=== PATIENT | male | born 1970 | race Caucasian/White ===

== ENCOUNTER 2025-03-29 11:23 | Outpatient (CLI) | payer BC, SELFPAY ==
--- OUTSIDE RECORDS SUMMARY | 2025-02-07 10:20 | XMS_ITS | Encounter Summary ---
Author Organization Healthcare Address [address] [place] [address] Care Team Providers Care Macroeconomics Professor Name Role Phone Saud Agustin DO Primary Care Provider Encounter Details Date Type Department Care Team (Late st Contact Info) Description 02/07/2025 10:20 AM EDT Consult [facility] Cardiothoracic [address], [address] [place] [address] Adi Barrientos MD [address] [place] [address] Essential hypertension (Primary Dx); Aneurysm of ascending aorta without rupture (CMS/HCC) Social History Tobacco Use Types Packs/Day Years Used Date Smoking Tobacco: Every Day Alcohol Use Standard Drinks/Week Comments Yes 0 (1 standard drink = 0.6 oz pur e alcohol) Sex and Gender Information Value Date Recorded Sex Assigned at Not on file Legal Sex Male 6:11 PM EDT Gender Identity Not on file Sexual Orientation Not on file documented as of this encounter Last Filed Vital Signs Vital Sign Reading Time Taken Comments Blood Pressure 110/74 02/07/2025 11:52 AM EDT Pulse 97 02/07/2025 11:52 AM EDT Temperature - - Respiratory Rate - - Oxygen Saturation 98% 02/07/2025 11:52 AM EDT Inhaled Oxygen Concentration - - Weight 99.6 kg (219 lb 9.3 oz) 02/07/2025 11:52 AM EDT Height 185.4 cm (6' 1 ) 02/07/2025 11:52 AM EDT Body Mass Index 28.97 02/07/2025 11:52 AM EDT documented in this encounter Miscellaneous Notes * Progress Notes - Dhara Dwyer, WATCH TRAIN INSPECTOR - 02/07/2025 10:20 AM EDT Reason for visit / Chief Complaint: New findings of Ascending Aortic Aneurism History of present illness: Roberto Tolentino is a very pleasant 54 y.o. 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 He was recentlybeing treated following a severe upper respiratory infection and had a CT scan of his chest done aspart of his workup. Several findings on the scan were concerning, among them a 4.6 cm ascending aortic aneurism. 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 His BP is well- maintained on his current regimen, he has lost a significant amount of weight over the past several years, and he reports a high degree of stress due to this finding and NYHA Classification: Class I: No symptoms with ordinary activity. Smoking Cessation: N/A Active Problems: Patient Active Problem List Diagnosis Date Noted Ascending aortic aneurysm (CMS/HCC) 02/07/2025 Essential hypertension 12/30/2020 Hypercholesteremia 12/30/2020 Dyslipidemia 01/18/2015 Medical History: Past Medical History: Diagnosis Date Aneurysm (CMS/HCC) Diabetes mellitus (CMS/HCC) Fatty liver Hypertension Palpitations Palpitations Personal history of diseases of the skin and subcutaneous tissue History of ingrown nail Personal history of other diseases of the musculoskeletal system and connective tissue History of low back pain Personal history of other diseases of the respiratory system History of acute bronchitis Personal history of other diseases of the respiratory system History of acute sinusitis Sleep apnea Surgical History: Surgical History[1] Social History: Tobacco: Tobacco Use: High Risk (02/07/2025) Patient History Smoking Tobacco Use: Every Day Smokeless Tobacco Use: Unknown Passive Exposure: Not on file Alcohol: Alcohol Use: Not on file Illicit drug use: Social History Substance and Sexual Activity Drug Use Not on file Family History: family history includes Cancer in his father; Colon cancer in an other family member; Conversions -Other in an other family member; Diabetes in an other family member; Diabetes type II in his fatherand mother; Heart disease in his brother and father; Hypertension in his father and mother; Menorrhagia in an other family member; Sleep apnea in an other family member; Stroke in his paternal grandfather; Thyroid disease in an other family member. Allergies: Allergies[2] Medications: Prior to Admission medications Medication Sig Start Date End Date Taking? Authorizing Provider aspirin 81 MG EC tablet Take 1 tablet by mouth 1 (one) time each day. 12/30/15 Yes Nette Burt MD Dulaglutide (TRULICITY SC) Inject 3.5 mg under the skin 1 (one) time per week. 07/17/24 Yes Nette Burt MD Farxiga 10 MG tablet Take 1 tablet by mouth 1 (one) time each day. 01/21/25 Yes Nette Burt MD Lanrosalinda SoloStar 100 UNIT/ML injection pen Inject 70 Units under the skin every morning. 11/16/24 YesProviderNette MD lisinopril 5 MG tablet Take 1 tablet by mouth daily. 02/27/24 Yes Nette Burt MD metFORMIN (Glucophage) 1000 MG tablet Take 1 tablet by mouth every 12 (twelve) hours. 06/20/24 Yes Nette Burt MD rosuvastatin (Crestor) 20 MG tablet Take 1 tablet by mouth nightly. 12/10/24 Yes Nette Burt MD Physical exam: Visit Vitals BP 110/74 Pulse 97 Ht 1.854 m (6' 1 ) Wt 99.6 kg (219 lb 9.3 oz) SpO2 98% BMI 28.97 kg/m?? Physical Exam Constitutional: Appearance: Normal appearance. HENT: Head: Normocephalic and atraumatic. Right Ear: External ear normal. Left Ear: External ear normal. Nose: Nose normal. Mouth/Throat: Pharynx: Oropharynx is clear. Eyes: Pupils: Pupils are equal, round, and reactive to light. Cardiovascular: Rate and Rhythm: Normal rate and regular rhythm. Pulses: Normal pulses. Heart sounds: Normal heart sounds. Pulmonary: Effort: Pulmonary effort is normal. Breath sounds: Normal breath sounds. Abdominal: Palpations: Abdomen is soft. Genitourinary: Comments: Deferred Musculoskeletal: General: Normal range of motion. Cervical back: Normal range of motion and neck supple. Skin: General: Skin is warm and dry. Capillary Refill: Capillary refill takes less than 2 seconds. Neurological: General: No focal deficit present. Mental Status: He is alert and oriented to person, place, and time. Mental status is at baseline. Psychiatric: Mood and Affect: Mood normal. Behavior: Behavior normal. Thought Content: Thought content normal. Judgment: Judgment normal. Imaging: CT imaging from 12/28/2024 performed at [facility], report read coronary artery calcification, aneursimal dilation of the ascending aorta measuring 4.6 cm transversely. The heart and pericardium are unremarkable. Impression: Roberto Tolentino is a very pleasant 54 y.o. male with PMHX HLD, HTN, T2D with insulin use, and NABIL, who self-referred to us in in regards to incidental findings of an aneurism on imaging. He presents today for second opinion from Dr Barrientos regarding significance of and need for monitoring of ascending aortic aneurism. Plan: - Dr. Barrientos looked at outside imaging and did not feel CT was of a high enough resolution to properly evaluate the aorta, given that it was performed more for a pulmonary workup its understandable. - We would like to obtain CTA chest for more thorough evaluation and measurement of ascending aortaand then we will see him back in the clinic in about 3 weeks to review results - Discussed this plan with the patient and his and they were in agreement - Discussed HTN management and patient's current regimen appears to be controlling his blood pressure to goal Personally reviewed CT imaging. Imaging he was were resolution basically lung scan. Quality of he was not adequate confirm a size ascending aortic aneurysm accurate. He was had serial echoes and no one has told aneurysm, those studies appeared to be and a private practice office which does not haveaccess descend images electronically. We will have him back in office as above go through a dedicated CTA chest. [1] Past Surgical History: Procedure Laterality Date CATARACT EXTRACTION COLONOSCOPY [2] Allergies Allergen Reactions Penicillins Other - please document in the comment field, Rash and Unknown - Patient states they donot know rxn details Prednisone Other - please document in the comment field Elevates blood sugar Cosigned by Adi Barrientos MD at 02/11/2025 4:02 PM EDT Associated attestation - Adi Barrientos MD - 02/11/2025 4:02 PM EDT The patient was seen by myself and Advanced Practice Provider (JAYSON), and care was reviewed with me. documented in this encounter Plan of Treatment Upcoming Encounters Date Type Department Care Team (Late st Contact Info) Description 09/12/2025 12:30 PM EST Appointment [facility] [address] [place] [address] 09/12/2025 1:40 PM EST Office Visit [facility] [address], [address] [place] [address] Adi Barrientos MD [address] [place] [address] documented as of this encounter Visit Diagnoses Diagnosis Essential hypertension- Primary Unspecified essential hypertension Aneurysm of ascending aorta without rupture (CMS/HCC) documented in this encounter Additional Health Concerns Assessment Noted Time A fall risk assessment has been complete d for the patient 02/07/2025 12:07 PM EDT A Body Mass Index follow-up plan has been documented for the patient 02/07/2025 3:04 PM EDT documented as of this encounter Care Teams Macroeconomics Professor Relationship Specialty Start Date End Date Saud Agustin DO [address] [facility] [address] [place] [address] PCP - General 02/04/25 documented as of this encounter
--- OUTSIDE RECORDS SUMMARY | 2025-02-28 14:12 | XMS_ITS | Encounter Summary ---
Author Organization [facility] Address [address] [place] [address] Care Team Providers Care Nutrition Professor Name Role Phone Saud Agustin DO Primary Care Provider Reason for Referral * Imaging (Routine) - Closed Specialty Diagnoses / Procedures Referred By Verenice quezada Referred To Contact Radiology Diagnoses Aneurysm of ascending aorta without rupture (CMS/HCC) Procedures CT Angio Chest Adi Barrientos MD [address] [address] Phone: tel: fax: Referral ID Status Reason Start Date Expiration Date Visits Re quested Visits Authorized [id number] Closed 02/07/2025 08/09/2026 1 1 Reason for Visit * Imaging (Routine) - Closed Specialty Diagnoses / Procedures Referred By Verenice quezada Referred To Contact Radiology Diagnoses Aneurysm of ascending aorta without rupture (CMS/HCC) Procedures CT Angio Chest Adi Barrientos MD [address] [address] Phone: tel: fax: Referral ID Status Reason Start Date Expiration Date Visits Re quested Visits Authorized [id number] Closed 02/07/2025 08/09/2026 1 1 Encounter Details Date Type Department Care Team (Latest Contact Info) Description 02/28/2025 2:12 PM EDT - 02/28/2025 11:59 PM EDT Hospital Encounter [facility] [address] [place] [address] Aneurysm of ascending aorta without rupture ([facility]) Discharge Disposition: Home or Self Care Social History Tobacco Use Types Packs/Day Years Used Date Smoking Tobacco: Every Day Alcohol Use Standard Drinks/Week Comments Yes 0 (1 standard drink = 0.6 oz pur e alcohol) Sex and Gender Information Value Date Recorded Sex Assigned at Not on file Legal Sex Male 6:11 PM EDT Gender Identity Not on file Sexual Orientation Not on file documented as of this encounter Medications at Time of Discharge aspirin 81 MG EC tablet Take 1 tablet by mouth 1 (one) time each day. 12/30/2015 Dulaglutide (TRULICITY SC) Inject 3.5 mg under the skin 1 (one) time per week. 07/17/2024 Farxiga 10 MG tablet Take 1 tablet by mouth 1 (one) time each day. 01/21/2025 Lantus SoloStar 100 UNIT/ML injection pen Inject 70 Units under the skin every morning. 11/16/2024 lisinopril 5 MG tablet Take 1 tablet by mouth daily. 02/27/2024 metFORMIN (Glucophage) 1000 MG tablet Take 1 tablet by mouth every 12 (twelve) hours. 06/20/2024 rosuvastatin (Crestor) 20 MG tablet Take 1 tablet by mouth nightly. 12/10/2024 documented as of this encounter Miscellaneous Notes * Aubrey Christian - 02/28/2025 2:19 PM EDT Images from the original note were not included. 1639 Caring for Yourself after Contrast Imaging If you had ORAL contrast: ?? You can go back to your normal diet and activities as tolerated. ?? Drink plenty of fluids, unless told otherwise. If you had IV contrast: ?? You can go back to your normal diet and activities as tolerated. ?? Drink plenty of fluids, unless told otherwise. ?? Leave a bandage on the site for 30 minutes (where the IV was inserted or blood was drawn). If you had Intravesical (bladder) contrast: ?? Return to normal diet and activity. What you need to know about delayed reaction to IV contrast What is IV Contrast? ?? Contrast is a dye that is put into your body through an IV. ?? It is used for imaging scans such as CT scans and MRIs. ?? The contrast makes blood vessels, organs and other parts of your body show up better on the scan. What do I need to do after IV contrast? ?? Drink lots of fluids. This will help flush the contrast out of your system. ?? Drink 2-3 extra glasses or bottles of water within 4 hours of your scan. What is a contrast reaction? ?? A contrast reaction is a bad side effect from the contrast dye. ?? It is rare but it does happen. ?? They can be mild - such as sneezing, itching, or hives. ?? They can be severe - such as trouble breathing, throat swelling, and irregular heart beat. When do these reactions happen? ?? They often happen right after the contrast is injected. ?? Some happen hours after going home. Go to the nearest Emergency Department right away if you have any of these symptoms after you leavethe clinic or hospital. ?? Sneezing ?? Itching in your mouth, throat, eyes, ears, or skin ?? Rash or hives ?? Throwing up or stomach sickness ?? High heart rate or ?racing? of your heart ?? Feeling dizzy or woozy ?? Feeling short of breath or like you can?t take a deep breath ?? Feeling very anxious for no other reason It is very important that these reactions be treated. Tell the doctor or nurse that you are having a reaction to IV contrast dye. Do not ignore any sign of a reaction! All reactions must be assessed by a doctor. Call 911 if you are alone and your reaction is more than mild sneezing or itching. If you have a mild reaction, call to speak with a Radiologist, explain that you havehad a contrast reaction, as this needs to be added to your medical record. documented in this encounter Plan of Treatment Upcoming Encounters Date Type Department Care Team (Late st Contact Info) Description 09/12/2025 12:30 PM EST Appointment [facility] [address] [place] [address] 09/12/2025 1:40 PM EST Office Visit [facility] Cardiothoracic [address], [address] [place] [address] Adi Barrientos MD [address] [place] [id number] documented as of this encounter Procedures Procedure Name Priority Date/Time Associated Diagnosis Comments CT ANGIO CHEST Routine 02/28/2025 2:43 PM EDT Aneurysm of ascending aorta without rupture (CMS/HCC) documented in this encounter Results * CT Angio Chest (02/28/2025 2:43 PM EDT) Anatomical Region Laterality Modality Chest Computed Tomogra phy Impressions 03/01/2025 8:29 AM EDT 45 mm ascending aortic aneurysm. CRITICAL RESULT: No COMMUNICATION: Per this written report. By electronically signing this report, I, the attending physician, attest that I have personally reviewed the images/data for the above examination(s) and agree with the final edited report. Drafted by RT Olga on 02/28/2025 2:47 PM Final report signed by Adi Monzon MD on 03/01/2025 8:29 AM Narrative 03/01/2025 8:29 AM EDT CLINICAL INDICATION: Aortic aneurysm suspected TECHNIQUE: A CT angiogram of the chest was performed in arterial phase. A total of 80 mL of Omnipaque 350 was administered during the examination. Advanced 3D workstation manipulation and review of the data set was performed by the interpreting physician to further define anatomy and possible pathology. Images of areas of interest were created utilizing various techniques. These images were saved and transferred to PACS if significant. TOTAL DLP (Dose-Length Product): 1604.63 mGy.cm Please note: The reported value represents the total of one or more individual components during the CT acquisition on this date and at this time, and as such, the same value may appear in more than one CT report depending on the interpreting/reporting physicians. COMPARISON: CT chest high resolution protocol on February 05, 2025 from outside images VASCULAR FINDINGS: Stable aneurysmal enlargement of the ascending thoracic aorta 45 mm. The aortic arch and descending aorta are normal in caliber. Preservation of the sinotubular junction. Arch vessels are widely patent. Upper abdomen, incidentally imaged SMA, celiac axis, bilateral renal arteries are widely patent. Mild coronary artery calcifications. Sinus: L 45 mm, R 36 mm, N 40 mm Sinotubular Junction: 42 mm Mid Ascending Aorta: 45 mm Proximal Transverse Aorta (just proximal to the great vessels): 40 mm Mid Transverse Aortic Arch (Between the Origins of the Left Carotid and Left Subclavian artery): 32 mm Dista Transverse Aorta (at the isthmus): 27 mm Proximal Descending Thoracic Aorta: 25 mm Distal Descending Thoracic Aorta: 24 mm ANCILLARY FINDINGS: Mild subpleural pulmonary fibrosis. No airspace opacities or suspicious nodules. No mediastinal or hilar adenopathy. No pleural or pericardial effusions. No concerning findings in the upper abdomen. Incidental note is made of colonic diverticular disease. Main pulmonary artery: 34 mm Procedure Note Adi Monzon MD - 03/01/2025 CLINICAL INDICATION: Aortic aneurysm suspected TECHNIQUE: A CT angiogram of the chest was performed in arterial phase. A total of80 mL of Omnipaque 350 was administered during the examination. [id number] workstation manipulation and review of the data set was performed bythe interpreting physician to further define anatomy and possiblepathology. Images of areas of interest were created utilizing varioustechniques. These images were saved and transferred to PACS ifsignificant. TOTAL DLP (Dose-Length Product): 1604.63 mGy.cm Please note: Thereported value represents the total of one or more individual componentsduring the CT acquisition on this date and at this time, and as such, thesame value may appear in more than one CT report depending on theinterpreting/reporting physicians. COMPARISON: CT chest high resolution protocol on February 05, 2025 from outside images VASCULAR FINDINGS: Stable aneurysmal enlargement of the ascending thoracic aorta 45 mm. Theaortic arch and descending aorta are normal in caliber. Preservation ofthe sinotubular junction. Arch vessels are widely patent. Upper abdomen,incidentally imaged SMA, celiac axis, bilateral renal arteries are widelypatent. Mild coronary artery calcifications. Sinus: L 45 mm, R 36 mm, N 40 mm Sinotubular Junction: 42 mm Mid Ascending Aorta: 45 mm Proximal Transverse Aorta (just proximal to the great vessels): 40 mm Mid Transverse Aortic Arch (Between the Origins of the Left Carotid andLeft Subclavian artery): 32 mm Dista Transverse Aorta (at the isthmus): 27 mm Proximal Descending Thoracic Aorta: 25 mm Distal Descending Thoracic Aorta: 24 mm ANCILLARY FINDINGS: Mild subpleural pulmonary fibrosis. No airspace opacities or suspiciousnodules. No mediastinal or hilar adenopathy. No pleural or pericardialeffusions. No concerning findings in the upper abdomen. Incidental note ismade of colonic diverticular disease. Main pulmonary artery: 34 mm IMPRESSION: 45 mm ascending aortic aneurysm. CRITICAL RESULT: No COMMUNICATION: Per this written report. By electronically signing this report, I, the attending physician, attestthat I have personally reviewed the images/data for the aboveexamination(s) and agree with the final edited report. Drafted by RT Olga on 02/28/2025 2:47 PM Final report signed by Adi Monzon MD on 03/01/2025 8:29 AM us Adi Barrientos MD IMG CT PROCEDURES Final Resu lt documented in this encounter Visit Diagnoses Diagnosis Aneurysm of ascending aorta without rupture (CMS/HCC) documented in this encounter Administered Medications Inactive Administered Medications - up to 3 most recent administrations Medication Order MAR Action Action Date Dose Rate Site iohexol (OMNIPaque) 350 MG/ML injection 80 mL 80 mL, Intravenous, Once in imaging, 1 dose, Starting on Char 02/28/25 at 1419, Until Char 02/28/25 at 1441, Routine, Imaging Protocol Orders Given 02/28/2025 2:41 PM EDT 80 mL documented in this encounter Additional Health Concerns Assessment Noted Time A fall risk assessment has been complete d for the patient 02/28/2025 3:10 PM EDT A Body Mass Index follow-up plan has been documented for the patient 03/09/2025 9:48 AM EDT documented as of this encounter Care Teams Nutrition Professor Relationship Specialty Start Date End Date Saud Agustin DO [facility] [address] [place] [address] PCP - General 02/04/25 documented as of this encounter
--- OUTSIDE RECORDS SUMMARY | 2025-02-28 15:20 | XMS_ITS | Encounter Summary ---
Author Organization [facility] Address [address] [place] [address] Care Team Providers Care Jet Handler Name Role Phone Saud Agustin DO Primary Care Provider Reason for Referral * Imaging (Routine) - Pending Review Specialty Diagnoses / Procedures Referred By Charlotteac t Referred To Contact Radiology Diagnoses Aneurysm of ascending aorta without rupture (CMS/HCC) Procedures CT Chest wo IV Contrast dAi Barrientos MD [address] [address] Phone: tel: fax: Referral ID Status Reason Start Date Expiration Date V isits Requested Visits Authorized [id number] Pending Review 03/01/2025 08/31/2026 1 1 Encounter Details Date Type Department Care Team (Late st Contact Info) Description 02/28/2025 3:20 PM EDT Office Visit [place] [facility] [address], [address] [place] [address] Adi Barrientos MD [address] [address] Aneurysm of ascending aorta without rupture (CMS/HCC) (Primary Dx) Social History Tobacco Use Types Packs/Day Years [...] Sign Reading Time Taken Comments Blood Pressure 135/89 02/28/2025 3:09 PM EDT Pulse 78 02/28/2025 3:09 PM EDT Temperature - - Respiratory Rate - - Oxygen Saturation 97% 02/28/2025 3:09 PM EDT Inhaled Oxygen Concentration - - Weight 98.9 kg (218 lb 0.6 oz) 02/28/2025 3:09 P M EDT Height - - Body Mass Index 28.77 02/07/2025 11:52 AM EDT documented in this encounter Miscellaneous Notes * Progress Notes - Antonio Rueda MD - 02/28/2025 3:20 PM EDT Referring Provider: Reason for visit / Chief Complaint: ascending aortic aneurysm History of present illness: Roberto Tolentino is a 54 y.o. male here for follow up from ascending aortic aneurysm. He has a past medical history of sleep apnea, hypertension, hyperlipemia, and diabetes. He was recently being treatedfollowing a severe upper respiratory infection and had a CT scan of his chest done as part of his workup. He had an incidentally found 4.6 cm ascending aortic aneurism. However, the scan was not a great resolution for evaluating the aorta. He returns after CTA of the chest. He has no family history of aneurysms, sudden , or connective tissue diseases. He denies chestpain or back pain. Has occasional palpitations. Follows with Dr. Ruiz. Reportedly gets ECHOs in the office but we have no reports. Problem List[1] Medical History Past Medical History: Diagnosis Date Aneurysm (CMS/HCC) [...] History of acute sinusitis Sleep apnea Surgical History Surgical History[2] Social History: Tobacco: Tobacco Use: High Risk [...] disease in an other family member. Allergies: Allergies[3] Medications: Prior to Admission medications Medication Sig Start Date End Date Taking? Authorizing Provider aspirin 81 MG EC tablet Take 1 tablet by mouth 1 (one) time each day. 12/30/15 Nette Burt MD Dulaglutide (TRULICITY SC) Inject 3.5 mg under the skin 1 (one) time per week. 07/17/24 Nette Burt MD Farxiga 10 MG tablet Take 1 tablet by mouth 1 (one) time each day. 01/21/25 Nette Burt MD Lanpilarus SoloStar 100 UNIT/ML injection pen Inject 70 Units under the skin every morning. 11/16/24 Nette Burt MD lisinopril 5 MG tablet Take 1 tablet by mouth daily. 02/27/24 Nette Burt MD metFORMIN (Glucophage) 1000 MG tablet Take 1 tablet by mouth every 12 (twelve) hours. 06/20/24 Nette Burt MD rosuvastatin (Crestor) 20 MG tablet Take 1 tablet by mouth nightly. 12/10/24 Nette Burt MD Visit Vitals BP 135/89 Pulse 78 SpO2 97% Physical exam: General: alert and oriented, appropriate HEENT: normocephalic, atraumatic, normal external ears and nose Eyes: no scleral icterus, normal conjunctiva Neck: supple, no trachea deviation Lungs: symmetric chest rise, non-labored breathing Heart: Regular rate, well perfused, no murmur Abdomen: soft NT/ND, Extremities: no peripheral edema Skin: no rash, no cyanosis and warm to touch Psychiatric: oriented to person/place/time and normal mood/affect Imagin.6cm aneurysm. Final read pending Narrative & Impression CLINICAL INDICATION: Aortic aneurysm suspected COMPARISON: CT chest high resolution protocol on February 05, 2025 from outside images VASCULAR FINDINGS: Stable aneurysmal enlargement of the ascending thoracic aorta 45 mm. The aortic arch and descendingaorta are normal in caliber. Preservation of the sinotubular junction. Arch vessels are widely patent. Upper abdomen, incidentally imaged SMA, celiac axis, bilateral renal arteries are widely patent.Mild coronary artery calcifications. Sinus: L 45 mm, R 36 mm, N 40 mm Sinotubular Junction: 42 mm Mid Ascending Aorta: 45 mm Proximal Transverse Aorta (just proximal to the great vessels): 40 mm Mid Transverse Aortic Arch (Between the Origins of the Left Carotid and Left Subclavian artery): 32mm Dista Transverse Aorta (at the isthmus): 27 [...] mm IMPRESSION: 45 mm ascending aortic aneurysm. Impression: Roberto Tolentino is a 54 y.o. male here for follow up from ascending aortic aneurysm. He has a past medical history of sleep apnea, hypertension, hyperlipemia, and diabetes. He was recently being treatedfollowing a severe upper respiratory infection and had a CT scan of his chest done as part of his workup. He had an incidentally found 4.6 cm ascending aortic aneurism. However, the scan was not a great resolution for evaluating the aorta. He returns after CTA of the chest. Imaging reviewed. He has a 4.5 to 4.6cm ascending aortic aneurysm. He has no family history of aneurysm or other high risk features that we know of. Risks>benefits for surgery right now. Patient verbalized understanding Plan: Continue blood pressure control with systolic goal <130 mmHg Obtain last ECHO report from Dr. Ruiz's office Avoid heavy lifting Follow up in [address] chest [1] Patient Active Problem List Diagnosis Dyslipidemia Essential hypertension Hypercholesteremia Ascending aortic aneurysm (CMS/HCC) Overweight (BMI 25.0-29.9) Type 2 diabetes mellitus [2] Past Surgical History: Procedure Laterality Date CATARACT EXTRACTION COLONOSCOPY [3] Allergies Allergen Reactions Penicillins Other - please document in the comment field, Rash and Unknown - Patient states they donot know rxn details Prednisone Other - please document in the comment field Elevates blood sugar Cosigned by Adi Barrientos MD at 03/09/2025 9:48 AM EDT Associated attestation - Adi Barrientos MD - 03/09/2025 9:48 AM EDT I saw and evaluated the patient with the resident/fellow. I discussed the case with the resident/fellow and agree with the findings and plan as documented. documented in this encounter Plan of Treatment Upcoming Encounters Date Type Department Care Team (Late st Contact Info) Description 09/12/2025 12:30 PM EST Appointment [facility] [address] [place] [address] 09/12/2025 1:40 PM EST Office Visit [place] [facility] [address], [address] [place] [address] Adi Barrinetos MD [address] [place] [address] Scheduled Orders Name Type Priority Associated Diagnoses Orde r Schedule CT Chest wo IV Contrast Imaging Routine Aneurysm of ascending aorta without rupture (CMS/HCC) Expected: 09/01/2025 (Approximate), Expires: 09/01/2026 documented as of this encounter Visit Diagnoses Diagnosis Aneurysm of ascending aorta without rupture (CMS/HCC)- Primary documented in this encounter Additional Health Concerns Assessment Noted Time A fall risk assessment has been complete d for the patient 02/28/2025 3:10 PM EDT A Body Mass Index follow-up plan has been documented for the patient 03/09/2025 9:48 AM EDT documented as of this encounter Care Teams Jet Handler Relationship Specialty Start Date End Date Saud Agustin DO [facility]8 [facility] [address] [place] [address] PCP - General 02/04/25 documented as of this encounter
--- OUTSIDE RECORDS SUMMARY | 2025-03-29 11:28 | XMS_ITS | Clinical Summary ---
Author Organization [facility] Address [address] [place] [address] Care Team Providers Care Maple Products Supervisor Name Role Phone Saud Agustin DO Primary Care Provider Melecio Ruiz MD Unavailable [phone] Allergies Active Allergy Reactions Criticality Noted Date Comments Penicillins Other - please docum ent in the comment field,Rash,Unknown - Patient states they do not know rxn details Low 01/17/2015 Prednisone Other - please docum ent in the comment field Low 01/17/2015 Elevates blood sugar Medications Dulaglutide (TRULICITY SC) Inject 3.5 mg under the skin 1 (one) time per week. 07/17/2024 Active Lantus SoloStar 100 UNIT/ML injection pen Inject 70 Units under the skin every morning. 11/16/2024 Active metFORMIN (Glucophage) 1000 MG tablet Take 1 tablet by mouth every 12 (twelve) hours. 06/20/2024 Active aspirin 81 MG EC tablet Take 1 tablet by mouth 1 (one) time each day. 12/30/2015 Active Farxiga 10 MG tablet Take 1 tablet by mouth 1 (one) time each day. 01/21/2025 Active lisinopril 5 MG tablet Take 1 tablet by mouth daily. 02/27/2024 Active rosuvastatin (Crestor) 20 MG tablet Take 1 tablet by mouth nightly. 12/10/2024 Active Active Problems Problem Noted Date Diagnosed Date Overweight (BMI 25.0-29.9) 02/28/2025 Type 2 diabetes mellitus 02/28/2025 Ascending aortic aneurysm 02/07/2025 Essential hypertension 12/30/2020 Hypercholesteremia 12/30/2020 Dyslipidemia 01/18/2015 Encounters Date Type Department Care Team Description 02/28/2025 3:20 PM EDT Office Visit [facility] Cardi[facility] [address], [address] [place] [address] Adi Barrientos MD Aneurysm of ascending aorta without rupture (CMS/HCC) (Primary Dx) 02/28/2025 2:12 PM EDT - 02/28/2025 11:59 PM EDT Hospital Encounter [facility] [address] [place] [address] Aneurysm of ascending aorta without rupture (CMS/HCC) Discharge Disposition: Home or Self Care 02/28/2025 Travel 02/21/2025 Travel 02/07/2025 10:20 AM EDT Consult [facility] Cardi[facility] [address], [address] [place] [address] Adi Barrientos MD Essential hypertension (Primary Dx); Aneurysm of ascending aorta without rupture (CMS/HCC) 02/07/2025 Orders Only [facility] [address], [address] [place] [address] Adi Barrientos MD Aneurysm of ascending aorta without rupture (CMS/HCC) (Primary Dx) 02/07/2025 Travel 02/05/2025 Orders Only External Location [address] [place] [address] Provider, External 02/05/2025 Orders Only External Location [address] [place] [address] Provider, External 01/18/2025 Orders Only External Location [address] [place] [address] Provider, External from Last 3 Months Immunizations Immunization Administration Dates Next Due Influenza, injectable, quadrivalent 10/26/2023,1 11/29/2021 Pneumococcal 20-jai Conj Vaccine 01/11/2025 Family History Medical History Relation Name Comments Heart disease Brother Cancer Father Diabetes type II Father Heart disease Father Hypertension Father Diabetes type II Mother Hypertension Mother Menorrhagia Other 1 Colon cancer Other 2 Conversions - Other Other 3 Coronary arteriosclerosis Diabetes Other 4 Sleep apnea Other 5 Thyroid disease Other 6 Stroke Paternal Grandfather Relation Name Status Comments Brother Father Mother Other 1 Other 2 Other 3 Other 4 Other 5 Other 6 Paternal Grandfather Social History Tobacco Use Types Packs/Day Years Used Date Smoking Tobacco: Every Day Alcohol Use Standard Drinks/Week Comments Yes 0 (1 standard drink = 0.6 oz pur e alcohol) Sex and Gender Information Value Date Recorded Sex Assigned at Not on file Legal Sex Male 6:11 PM EDT Gender Identity Not on file Sexual Orientation Not on file Last Filed Vital Signs Vital Sign Reading Time Taken Comments Blood Pressure 135/89 02/28/2025 3:09 PM EDT Pulse 78 02/28/2025 3:09 PM EDT Temperature - - Respiratory Rate - - Oxygen Saturation 97% 02/28/2025 3:09 PM EDT Inhaled Oxygen Concentration - - Weight 98.9 kg (218 lb 0.6 oz) 02/28/2025 3:09 P M EDT Height 185.4 cm (6' 1 ) 02/07/2025 11:52 AM EDT Body Mass Index 28.77 02/07/2025 11:52 AM EDT Plan of Treatment Upcoming Encounters Date Type Department Care Team (Late st Contact Info) Description 09/12/2025 12:30 PM EST Appointment [facility] [address] [place] [address] 09/12/2025 1:40 PM EST Office Visit [place] [facility] [address] [facility] [address] [place] [address] Adi Barrientos MD [address] [facility] [address] [place] [address] Health Maintenance Due Date Last Done Comments [facility]-Depression Screening 1971 [facility]-Diabetes: Hemoglobin A1C 1971 [facility]-HIV Screening 1971 [facility]-Hepatitis C Screening 1971 [facility]-Infant/Child/Adol SDOH Screenings 1971 Diabetes: Dental Exam 1981 [facility]- SDOH Screenings 1989 [facility]-Adult SDOH Screenings 1989 [facility]-DTaP,Tdap,and Td Vaccine s (1 - Tdap) 1990 [facility]-Hepatitis B Vaccines (1 of 3 - 19+ 3-dose series) 1990 CT Colonography 2016 Colonoscopy 2016 FIT-DNA 2016 FIT 2016 FOBT 2016 Sigmoidoscopy 2016 [facility]-Colorectal Cancer Screening 2016 [facility]-Zoster Vaccines (1 of 2) 2021 [facility]-[id number]-60 Vaccine (4 - 2023- season) 2024 11/02/2021, 01/27/2021, 12/30/2020 [facility]-Influenza Vaccine (Seaso n Ended) 2025 10/26/2023, 09/28/2022 [facility]-Pneumococcal Vaccine: 50 + Years Completed 01/11/2025 [facility]-Obesity Intervention Completed 025, 02/07/2025 HPV Vaccines Aged Out No longer eligi ble based on patient's age to complete this topic [facility]-HIB Vaccines Aged Out No longer e ligible based on patient's age to complete this topic [facility]-Hepatitis A Vaccines Aged Out No longer eligible based on patient's age to complete this topic [facility]-IPV Vaccines Aged Out No longer e ligible based on patient's age to complete this topic [facility]-Rotavirus Vaccines Aged Out No lo nger eligible based on patient's age to complete this topic Procedures Procedure Name Priority Date/Time Associated Diagnosis Comments CT ANGIO CHEST Routine 02/28/2025 2:43 PM EDT Aneurysm of ascending aorta without rupture (CMS/HCC) CT OUTSIDE IMAGES 02/05/2025 8:[address] OUTSIDE IMAGES 02/05/2025 8:[address] MSK OUTSIDE IMAGES 01/18/2025 8:28 AM EDT from Last 3 Months Results * CT Angio Chest (02/28/2025 2:43 [...] Omnipaque 350 was administered during the examination. [id number] workstation manipulation and review of the data [...] MD IMG CT PROCEDURES Final Resu lt * CT OUTSIDE IMAGES (02/05/2025 8:20 AM EDT) Only the most recent of2 resultswithin the time period is included. Anatomical Region Laterality Modality Computed Tomogra phy 02/05/2025 8:20 AM EDT us External Provider IMG CT PROCEDURES Final Result * CT MSK OUTSIDE IMAGES (01/18/2025 8:28 AM EDT) Anatomical Region Laterality Modality Computed Tomogra phy 01/18/2025 8:28 AM EDT us External Provider IMG CT PROCEDURES Final Result from Last 3 Months Insurance Care Teams Maple Products Supervisor Relationship Specialty Start Date End Date Saud Agustin DO [address] [facility] [address] [place] [address] PCP - General 02/04/25 Melecio Ruiz MD [address] [place] [address] [address] [place] [address] Referring Physician 03/01/25
--- OUTSIDE RECORDS SUMMARY | 2025-03-29 11:28 | XMS_ITS | Encounter Summary ---
Author Organization [facility] Address [address] [place] [address] Care Team Providers Care Site Monitor Name Role Phone NikoleSaud Soraida JIANG Primary Care Provider Encounter Details Date Type Department Care Team (Late st Contact Info) Description 02/05/2025 Orders Only External Location [address] [place] [phone] Provider, External Social History Tobacco Use Types Packs/Day Years Used Date Smoking Tobacco: Every Day Alcohol Use Standard Drinks/Week Comments Yes 0 (1 standard drink = 0.6 oz pur e alcohol) Sex and Gender Information Value Date Recorded Sex Assigned at Not on file Legal Sex Male 6:11 PM EDT Gender Identity Not on file Sexual Orientation Not on file documented as of this encounter Plan of Treatment Upcoming Encounters Date Type Department Care Team (Late st Contact Info) Description 09/12/2025 12:30 PM EST Appointment [facility] [address] [place] [address] 09/12/2025 1:40 PM EST Office Visit [place] [facility] [address], [address] [place] [address] Adi Barrientos MD [address] [place] [address] documented as of this encounter Procedures Procedure Name Priority Date/Time Associated Diagnosis Comments CT OUTSIDE IMAGES 02/05/2025 8:20 AM EDT documented in this encounter Results * CT OUTSIDE IMAGES (02/05/2025 8:20 AM EDT) Anatomical Region Laterality Modality Computed Tomogra phy 02/05/2025 8:20 AM EDT us External Provider IMG CT PROCEDURES Final Result documented in this encounter Visit Diagnoses Not on filedocumented in this encounter Care Teams Site Monitor Relationship Specialty Start Date End Date Saud Agustin DO [facility]8 [facility] [address] [place] [address] PCP - General 02/04/25 documented as of this encounter
--- OUTSIDE RECORDS SUMMARY | 2025-03-29 11:28 | XMS_ITS | Encounter Summary ---
Author Organization [facility] Address [address] [place] [address] Care Team Providers Care Security Assurance Analyst Name Role Phone Saud Agustin DO Primary Care Provider Encounter Details Date Type Department Care Team (Latest Contact Info) Description 02/07/2025 Travel Social History Tobacco Use Types Packs/Day Years [...] EST Appointment [facility] [address] [place] [address] 09/12/2025 1:40 PM EST Office Visit [place] [facility] [address], [address] [place] [address] Adi Barrientos MD [address] [place] [address] documented as of this encounter Visit Diagnoses Not on filedocumented in this encounter Additional Health Concerns Assessment Noted Time A fall risk assessment has been complete d for the patient 02/07/2025 12:07 PM EDT A Body Mass Index follow-up plan has been documented for the patient 02/07/2025 3:04 PM EDT documented as of this encounter Care Teams Security Assurance Analyst Relationship Specialty Start Date End Date Saud Agustni DO [facility]8 [facility] [address] [place] [address] PCP - General 02/04/25 documented as of this encounter
--- OUTSIDE RECORDS SUMMARY | 2025-03-29 11:28 | XMS_ITS | Encounter Summary ---
Author Organization [facility] Address [address] [place] [address] Care Team Providers Care Curtain Feller Blindstitch Name Role Phone Saud Agustin DO Primary Care Provider Encounter Details Date Type Department Care Team (Latest Contact Info) Description 02/21/2025 Travel Social History Tobacco Use Types Packs/Day [...] EST Appointment [facility] [address] [place] [address] 09/12/2025 1:40 PM EST Office Visit [place] [facility] [address], [address] [place] [address] Adi Barrientos MD [address] [place] [address] documented as of this encounter Visit Diagnoses Not on filedocumented in this encounter Additional Health Concerns Assessment Noted Time A fall risk assessment has been complete d for the patient 02/07/2025 12:07 PM EDT A Body Mass Index follow-up plan has been documented for the patient 02/07/2025 3:04 PM EDT documented as of this encounter Care Teams Curtain Feller Blindstitch Relationship Specialty Start Date End Date Saud Agustin DO [facility]8 [facility] [address] [place] [address] PCP - General 02/04/25 documented as of this encounter
--- OUTSIDE RECORDS SUMMARY | 2025-03-29 11:28 | XMS_ITS | Encounter Summary ---
Author Organization [facility] Address [address] [place] [address] Care Team Providers Care Geological Survey Field Assistant Name Role Phone Saud Agustin DO Primary Care Provider Reason for Referral * Imaging (Routine) - Closed Specialty Diagnoses / Procedures Referred By Contkaylin t Referred To Contact Radiology Diagnoses Aneurysm of ascending aorta without rupture (CMS/HCC) Procedures CT Angio Chest Adi Barrientos MD [address] [address] Phone: tel: fax: Referral ID Status Reason Start Date Expiration Date Visits Re quested Visits Authorized [id number] Closed 02/07/2025 08/09/2026 1 1 Encounter Details Date Type Department Care Team (Late st Contact Info) Description 02/07/[address] [facility] Cardi[facility] [address], [place] [phone] Adi Barrientos MD [address] [address] Aneurysm of ascending aorta without [...] EST Appointment [facility] [address] [place] [address] 09/12/2025 1:40 PM EST Office Visit [place] [facility] [address], [address] [place] [address] Adi Barrientos MD [address] [place] [address] documented as of this encounter Results * CT Angio Chest [...] Omnipaque 350 was administered during the examination. [id number] workstation manipulation and review of the data [...] of ascending aorta without rupture (CMS/HCC)- Primary Aneurysm of ascending aorta without rupture (CMS/HCC) documented in this encounter Additional Health Concerns Assessment Noted Time A fall risk assessment has been complete d for the patient 02/07/2025 12:07 PM EDT A Body Mass Index follow-up plan has been documented for the patient 02/07/2025 3:04 PM EDT documented as of this encounter Care Teams Geological Survey Field Assistant Relationship Specialty Start Date End Date Saud Agustin DO [address] [place] [address] [address] [place] [address] PCP - General 02/04/25 documented as of this encounter
--- OUTSIDE RECORDS SUMMARY | 2025-03-29 11:28 | XMS_ITS | Encounter Summary ---
Author Organization [facility] Address [address] [place] [address] Care Team Providers Care Belt Turner Name Role Phone Saud Agustin DO Primary Care Provider Encounter Details Date Type Department Care Team (Latest Contact Info) Description 02/28/2025 Travel Social History Tobacco Use Types Packs/Day [...] EST Appointment [facility] [address] [place] [address] 09/12/2025 1:40 PM EST Office Visit [place] [facility] [address], [place] [id number] [place] [address] Adi Barrientos MD [address] [place] [address] documented as of this encounter Visit Diagnoses Not on filedocumented in this encounter Additional Health Concerns Assessment Noted Time A fall risk assessment has been complete d for the patient 02/28/2025 3:10 PM EDT A Body Mass Index follow-up plan has been documented for the patient 03/09/2025 9:48 AM EDT documented as of this encounter Care Teams Belt Turner Relationship Specialty Start Date End Date Saud Agustin DO [facility]8 [facility] [address] [place] [address] PCP - General 02/04/25 documented as of this encounter
--- OUTSIDE RECORDS SUMMARY | 2025-03-29 11:28 | XMS_ITS | Encounter Summary ---
Author Organization [facility] Address [address] [place] [address] Care Team Providers Care Entry Level Automotive Technician Name Role Phone Saud Agustin DO Primary Care Provider Melecio Ruiz MD Unavailable Encounter Details Date Type Department Care Team (Late st Contact Info) Description 01/18/2025 Orders Only External Location [address] [place] [id number] Provider, External Social History Tobacco Use Types [...] Encounters Date Type Department Care Team (Late Contact Info) Description 09/12/2025 12:30 PM EST Appointment [facility] [address] [place] [phone] 09/12/2025 1:40 PM EST Office Visit [facility] [address], [address] [place] [address] Adi Barrientos MD [address] [place] [phone] documented as of this encounter Procedures Procedure Name Priority Date/Time Associated Diagnosis Comments CT [facility] OUTSIDE IMAGES 01/18/2025 8:28 AM EDT documented in this encounter Results * CT MSK OUTSIDE IMAGES (01/18/2025 8:28 AM EDT) Anatomical Region Laterality Modality Computed Tomogra phy 01/18/2025 8:28 AM EDT us External Provider IMG CT PROCEDURES Final Result documented in this encounter Visit Diagnoses Not on filedocumented in this encounter Care Teams Entry Level Automotive Technician Relationship Specialty Start Date End Date Saud Agustin DO [address] [facility] [address] [place] [address] PCP - General 02/04/25 Melecio Ruiz MD [address] [place] [address] [address] [place] [address] Referring Physician 03/01/25 documented as of this encounter
--- OUTSIDE RECORDS SUMMARY | 2025-03-29 11:28 | XMS_ITS | Data Portability ---
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 Plan of Treatment Reminders Order Date Submit Date Provider Last Modified By Organization Details Last Modified Time Details Appointments RECHECK 2024 08:15A M VALERIE KING MD Not available Not available Not available [facility] DOWNLOAD 2024 12:00P M [facility] er_dme Not available Not available Not available [facility] 2024 12:00P M Sleep_cent er_dme Not available Not available Not available [facility] 2025 12:00P M Sleep_cent er_dme Not available Not available Not available Lab sjogren antibody panel, serum 2024 025 [facility], [address] [place] [address], [id number], 01/18/2025 15:01:19 sclerode rma (scl-70) Ab, serum 2024 025 [facility], [address] [place] [address], [id number], 01/18/2025 15:01:18 MAGGIE (antinuc lear antibodi es) panel, serum 2024 025 [facility], [address] [place] [address], [id number], 01/16/2025 20:00:53 ccp (cyclic citrulli nated peptide) iga+igg, serum 2024 025 [facility], [address] [place] [address], [id number], 01/16/2025 13:36:51 ESR (erythro cyte sediment ation rate), blood 2024 025 [facility], [address] [place] [address], [id number], 01/14/2025 08:58:52 CBC w/ auto diff 2024 025 [facility], [address] [place] [address], [id number], 01/14/2025 08:47:45 C reactive protein, QN, serum or plasma 2024 025 [facility], [address] [place] [address], [id number], 01/14/2025 09:10:24 rf (rheumat oid factor), serum 2024 025 [facility], [address] [place] [address], [id number], 01/14/2025 09:10:22 hypersen sitivity pneumoni tis profile, serum 2024 025 [facility], [address] [place] [address], [id number], 01/20/2025 17:20:50 culture, bacteria l 2024 025 [facility], [address] [place] [address], [id number], 01/15/2025 09:58:28 CMP, serum or plasma 2024 025 [facility], [address] [place] [address], [id number], 01/04/2025 19:24:51 CBC w/ auto diff 2024 025 [facility], [address] [place] [address], [id number], 01/04/2025 19:07:27 glycohem oglobin, total, blood 2024 025 [facility], [address] [place] [address], [address], 01/04/2025 19:20:37 lipid panel, serum 2024 025 [facility], [address] [place] [address], [address], 01/04/2025 19:24:52 microalb umin/cre atinine, mass ratio, urine 2024 025 [email or web address] [facility], [address] [place] [address], [address], 01/18/2025 13:37:37 Referral pulmonol ogist referral 2024 025 [email or web address] Valerie King MD, [address] [place] [address], [id number], 01/16/2025 08:30:10 Procedures home sleep testing (PROC) 2024 025 [facility], [address], [address], [place], [address], 01/11/2025 10:02:30 pulse oximetry with exercise (PROC) 2024 025 [facility], [address] [place] [address], [address], 01/11/2025 14:03:09 home sleep testing (PROC) 2024 025 [email or web address] [facility], [address], [address], [place], [address], 02/08/2025 11:05:09 nerve conducti on study/EM G, upper extremit y (PROC) 2024 025 [email or web address] [facility] (Centralized Scheduling), [address], [place], [address], 01/21/2025 14:58:32 Surgeries None recorded . Imaging CT, chest, w/o contrast 2024 025 [facility], [address] [place] [address], [id number], 02/05/2025 08:44:53 CT, chest, w/o contrast 2024 025 [facility] (Centralized Scheduling), [address], [place], [address], 01/01/2025 18:21:24 XR, cervical spine, 2 or 3 view 2024 025 [facility], [address] [place] [address], [address], 12/14/2024 09:57:27 Medication Orders rosuvast atin 20 mg tablet 2024 025 [facility] [id number], [address] [place] [address], [address], 12/10/2024 10:34:13 Patient TargetsNo targets recorded. Patient Instructions Encounter Date Encounter Id Patient Instructions Last Modified By Organization Details Last Modified Time 01/11/2025 [id number] Body Mass Index: Care Instructions- [email or web address] Not available 01/11/2025 09:49:34 I have discussed the above plan with him we will review subsequent data once available He return to see me in 4 weeks or sooner if needed [email or web address] Not available 01/11/2025 10:54:59 02/05/2025 [id number] I have discussed the above plan with him he will return to see me in 2 months or sooner if need I will initiate him on CPAP therapy we will obtain a follow-up spirometry HRCT shows resolution of the bilateral infiltrates. 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 Referring Physician: Richard Agustin, Internal Medicine, Encounter Date: 01/04/2025 Results Created Date Observation Date Name Description Value Unit Range Abnormal Flag Note LastModifiedBy Organization Detail LastModifiedTime 01/05/2001/04/2025 COMPL ETE BLOOD COUNT white blood cells 7.3 10*3/ uL 3.8-10 .8 normal Not Available [facility] [address] [place] [address], [id number], 01/04/2025 19:07:27 01/05/20 25 01/04/2025 COMPL ETE BLOOD COUNT red blood cells 5.89 10*6/ uL 4.20-5 .80 high Not Available [facility] [address] [place] [address], [address], 01/04/2025 19:07:27 01/05/20 25 01/04/2025 COMPL ETE BLOOD COUNT hemoglobin 17.8 g/dL 14.0-1 8.0 normal Not Available [facility] [address] [place] [address], [address], 01/04/2025 19:07:27 01/05/20 25 01/04/2025 COMPL ETE BLOOD COUNT hematocrit 50.7 % 40.0-5 2.0 normal Not Available [facility] [address] [place] [address], [address], 01/04/2025 19:07:27 01/05/20 25 01/04/2025 COMPL ETE BLOOD COUNT MCV 86 fL 80-100 normal Not Available [facility] [address] [place] [address], [address], 01/04/2025 19:07:27 01/05/20 25 01/04/2025 COMPL ETE BLOOD COUNT MCH 30 pg 26-35 normal Not Available [facility] [address] [place] [address], [address], 01/04/2025 19:07:27 01/05/20 25 01/04/2025 COMPL ETE BLOOD COUNT MCHC 35 g/dL 32-36 normal Not Available [facility] [address] [place] [address], [address], 01/04/2025 19:07:27 01/05/20 25 01/04/2025 COMPL ETE BLOOD COUNT RDW 13.9 % 11.0-1 5.0 normal Not Available [facility] [address] [place] [address], [address], 01/04/2025 19:07:27 01/05/20 25 01/04/2025 COMPL ETE BLOOD COUNT MPV 8.4 fL 6.2-10 .5 normal Not Available [facility] [address] [place] [address], [address], 01/04/2025 19:07:27 01/05/20 25 01/04/2025 COMPL ETE BLOOD COUNT platelet count 203 10*3/ uL 150-40 0 normal Not Available [facility] [address] [place] [address], [address], 01/04/2025 19:07:27 01/05/20 25 01/04/2025 COMPL ETE BLOOD COUNT neutrophil,a bsolute 5.3 10*3/ uL 1.6-8. 4 normal Not Available [facility] [address] [place] [address], [address], 01/04/2025 19:07:27 01/05/20 25 01/04/2025 COMPL ETE BLOOD COUNT lymphocyte,a bsolute 1.5 10*3/ uL 0.4-5. 1 normal Not Available [facility] [address] [place] [address], [address], 01/04/2025 19:07:27 01/05/20 25 01/04/2025 COMPL ETE BLOOD COUNT monocyte,abs olute 0.4 10*3/ uL 0.0-1. 2 normal Not Available [facility] [address] [place] [address], [address], 01/04/2025 19:07:27 01/05/20 25 01/04/2025 COMPL ETE BLOOD COUNT eosinophil,a bsolute 0.1 10*3/ uL 0.0-0. 8 normal Not Available [facility] [address] [place] [address], [address], 01/04/2025 19:07:27 01/05/20 25 01/04/2025 COMPL ETE BLOOD COUNT basophil,abs olute 0.0 10*3/ uL 0.0-0. 3 normal Not Available [facility] [address] [place] [address], [address], 01/04/2025 19:07:27 01/05/20 25 01/04/2025 COMPL ETE BLOOD COUNT % neutrophils 72.5 % 42.0-7 8.0 normal Not Available [facility] [address] [place] [address], [address], 01/04/2025 19:07:27 01/05/20 25 01/04/2025 COMPL ETE BLOOD COUNT % lymphocytes 20.3 % 11.0-4 7.0 normal Not Available [facility] [address] [place] [address], [address], 01/04/2025 19:07:27 01/05/20 25 01/04/2025 COMPL ETE BLOOD COUNT % monocytes 5.6 % 0.0-11 .0 normal Not Available [facility] [address] [place] [address], [address], 01/04/2025 19:07:27 01/05/20 25 01/04/2025 COMPL ETE BLOOD COUNT % eosinophils 1.0 % 0.0-7. 0 normal Not Available [facility] [address] [place] [address], [address], 01/04/2025 19:07:27 01/05/20 25 01/04/2025 COMPL ETE BLOOD COUNT % basophils 0.6 % 0.0-3. 0 normal Not Available [facility] [address] [place] [address], [address], 01/04/2025 19:07:27 01/05/20 25 01/04/2025 COMPL ETE BLOOD COUNT nucleated red cells 0.2 % 0.0-0. 9 normal Not Available [facility] [address] [place] [address], [address], 01/04/2025 19:07:27 01/05/20 25 01/04/2025 COMPL ETE BLOOD COUNT nucleated RBCs, absolute 0.01 10*3/ uL not estab. normal Not Available [facility] [address] [place] [address], [address], 01/04/2025 19:07:27 01/05/20 25 01/04/2025 GLYCO HEMOG LOBIN A1C glyco HGB A1C 7.1 % 0.0-5. 6 high Not Available [facility] [address] [place] [address], [address], 01/04/2025 19:20:37 01/05/20 25 01/04/2025 GLYCO HEMOG LOBIN A1C estimated avg. glucose 157 mg/dL _(brendan c) normal A1c value s betwe en 5.7% to 6.4% indic ate predi abete s. Resul ts 6.5% or great er is diagn ostic of diabe laverne. Ameri can Diabe [facility] iatio n (diab etes. org) Not Available [facility] [address] [place] [address], [address], 01/04/2025 19:20:37 01/05/20 25 01/04/2025 COMP. METAB OLIC PANEL glucose 135 mg/dL 74-100 high Not Available [facility] [address] [place] [address], [address], 01/04/2025 19:24:51 01/05/20 25 01/04/2025 COMP. METAB OLIC PANEL blood urea nitrogen 12 mg/dL 6-20 normal Not Available [facility] [address] [place] [address], [address], 01/04/2025 19:24:51 01/05/20 25 01/04/2025 COMP. METAB OLIC PANEL creatinine 0.73 mg/dL 0.70-1 .28 normal Not Available [facility] [address] [place] [address], [address], 01/04/2025 19:24:51 01/05/20 25 01/04/2025 COMP. METAB OLIC PANEL BUN/creatini ne ratio 16 (calc ) 10-20 normal Not Available [facility] [address] [place] [address], [address], 01/04/2025 19:24:51 01/05/20 25 01/04/2025 COMP. METAB OLIC PANEL sodium 139 mmol/ L 136-14 5 normal Not Available [facility] [address] [place] [address], [address], 01/04/2025 19:24:51 01/05/20 25 01/04/2025 COMP. METAB OLIC PANEL potassium 4.2 mmol/ L 3.4-5. 0 normal Not Available [facility] [address] [place] [address], [address], 01/04/2025 19:24:51 01/05/20 25 01/04/2025 COMP. METAB OLIC PANEL chloride 104 mmol/ L 98-107 normal Not Available [facility] [address] [place] [address], [address], 01/04/2025 19:24:51 01/05/20 25 01/04/2025 COMP. METAB OLIC PANEL carbon dioxide 20 mmol/ L 22-31 low Not Available [facility] [address] [place] [address], [address], 01/04/2025 19:24:51 01/05/20 25 01/04/2025 COMP. METAB OLIC PANEL anion gap 15 (calc ) 7-25 normal Not Available [facility] [address] [place] [address], [address], 01/04/2025 19:24:51 01/05/20 25 01/04/2025 COMP. METAB OLIC PANEL calcium 9.4 mg/dL 8.6-10 .2 normal Not Available [facility] [address] [place] [address], [address], 01/04/2025 19:24:51 01/05/20 25 01/04/2025 COMP. METAB OLIC PANEL total protein 7.8 g/dL 6.4-8. 3 normal Not Available [facility] [address] [place] [address], [address], 01/04/2025 19:24:51 01/05/20 25 01/04/2025 COMP. METAB OLIC PANEL albumin 4.4 g/dL 3.5-5. 2 normal Not Available [facility] [address] [place] [address], [address], 01/04/2025 19:24:51 01/05/20 25 01/04/2025 COMP. METAB OLIC PANEL globulin 3.4 1.5-4. 5 normal Not Available [facility] [address] [place] [address], [address], 01/04/2025 19:24:51 01/05/20 25 01/04/2025 COMP. METAB OLIC PANEL albumin/glob ulin ratio 1.3 (calc ) 1.1-2. 5 normal Not Available [facility] [address] [place] [address], [address], 01/04/2025 19:24:51 01/05/20 25 01/04/2025 COMP. METAB OLIC PANEL bilirubin, total 0.6 mg/dL 0.1-1. 2 normal Not Available [facility] [address] [place] [address], [address], 01/04/2025 19:24:51 01/05/20 25 01/04/2025 COMP. METAB OLIC PANEL alkaline phosphatase 69 U/L 40-129 normal Not Available [facility] [address] [place] [address], [address], 01/04/2025 19:24:51 01/05/20 25 01/04/2025 COMP. METAB OLIC PANEL AST 22 U/L 0-40 normal Not Available [facility] [address] [place] [address], [address], 01/04/2025 19:24:51 01/05/20 25 01/04/2025 COMP. METAB OLIC PANEL ALT 27 U/L 0-41 normal Not Available [facility] [address] [place] [address], [address], 01/04/2025 19:24:51 01/05/20 25 01/04/2025 COMP. METAB OLIC PANEL GFR 108 >= 60 normal NOT E New calcu latio n for GFR (CKD- EPI 2020) is formu lated witho ut race adjus tment facto rs at the recom menda tion of the Marilee Camara y Tayla atshoaib and Dennys ramachandran Socie ty of Nephr ology . This calcu latio n has not been valid ated in pregn ant women . For pedia renata corcorane nts refer to https ://maura marques.rolando doll/irena quinonez s/DENISEO QI/gf r_cal culat orPed Not Available [facility] [address] [place] [address], [address], 01/04/2025 19:24:51 01/05/20 25 01/04/2025 LIPID PROFI LE HDL cholesterol 37 mg/dL 40-242 low Not Available [facility] [address] [place] [address], [address], 01/04/2025 19:24:52 01/05/20 25 01/04/2025 LIPID PROFI LE triglyceride s 116 mg/dL 0-149 normal TRIGL YCERI DE RANGE S URIEL L: < 150 BORDE RLINE HIGH: 150 - 199 HIGH: 200 - 499 VERY HIGH: > OR = 500 Not Available [facility] [address] [place] [address], [address], 01/04/2025 19:24:52 01/05/20 25 01/04/2025 LIPID PROFI LE cholesterol 101 mg/dL 0-199 normal CHRISTI STERO L (TOTA L) RANGE S ROBINSON ABLE: < 200 BORDE RLINE : 200 - 239 HIGHE R RISK: > 239 Not Available [facility] [address] [place] [address], [address], 01/04/2025 19:24:52 01/05/20 25 01/04/2025 LIPID PROFI LE LDL cholesterol 41 mg/dL _(brendan c) 0-99 normal LDL CHRISTI STERO L RANGE S OPTIM AL: < 100 NEAR/ ABOVE OPTIM AL: 100 - 129 BORDE RLINE HIGH: 130 - 159 HIGH: 160 - 189 VERY HIGH: > OR = 190 Not Available [facility] [address] [place] [address], [address], 01/04/2025 19:24:52 01/15/20 25 01/14/2025 COMPL ETE BLOOD COUNT white blood cells 9.0 10*3/ uL 3.8-10 .8 normal Not Available [facility] [address] [place] [address], [address], 01/14/2025 08:47:44 01/15/20 25 01/14/2025 COMPL ETE BLOOD COUNT red blood cells 5.83 10*6/ uL 4.20-5 .80 high Not Available [facility] [address] [place] [address], [address], 01/14/2025 08:47:44 01/15/20 25 01/14/2025 COMPL ETE BLOOD COUNT hemoglobin 17.6 g/dL 14.0-1 8.0 normal Not Available [facility] [address] [place] [address], [address], 01/14/2025 08:47:44 01/15/20 25 01/14/2025 COMPL ETE BLOOD COUNT hematocrit 49.9 % 40.0-5 2.0 normal Not Available [facility] [address] [place] [address], [address], 01/14/2025 08:47:44 01/15/20 25 01/14/2025 COMPL ETE BLOOD COUNT MCV 86 fL 80-100 normal Not Available [facility] [address] [place] [address], [address], 01/14/2025 08:47:44 01/15/20 25 01/14/2025 COMPL ETE BLOOD COUNT MCH 30 pg 26-35 normal Not Available [facility] [address] [place] [address], [address], 01/14/2025 08:47:44 01/15/20 25 01/14/2025 COMPL ETE BLOOD COUNT MCHC 35 g/dL 32-36 normal Not Available [facility] [address] [place] [address], [address], 01/14/2025 08:47:44 01/15/20 25 01/14/2025 COMPL ETE BLOOD COUNT RDW 14.2 % 11.0-1 5.0 normal Not Available [facility] [address] [place] [address], [address], 01/14/2025 08:47:44 01/15/20 25 01/14/2025 COMPL ETE BLOOD COUNT MPV 8.1 fL 6.2-10 .5 normal Not Available [facility] [address] [place] [address], [address], 01/14/2025 08:47:44 01/15/20 25 01/14/2025 COMPL ETE BLOOD COUNT platelet count 191 10*3/ uL 150-40 0 normal Not Available [facility] [address] [place] [address], [address], 01/14/2025 08:47:44 01/15/20 25 01/14/2025 COMPL ETE BLOOD COUNT neutrophil,a bsolute 7.0 10*3/ uL 1.6-8. 4 normal Not Available [facility] [address] [place] [address], [address], 01/14/2025 08:47:44 01/15/20 25 01/14/2025 COMPL ETE BLOOD COUNT lymphocyte,a bsolute 1.3 10*3/ uL 0.4-5. 1 normal Not Available [facility] [address] [place] [address], [address], 01/14/2025 08:47:44 01/15/20 25 01/14/2025 COMPL ETE BLOOD COUNT monocyte,abs olute 0.5 10*3/ uL 0.0-1. 2 normal Not Available [facility] [address] [place] [address], [address], 01/14/2025 08:47:44 01/15/20 25 01/14/2025 COMPL ETE BLOOD COUNT eosinophil,a bsolute 0.2 10*3/ uL 0.0-0. 8 normal Not Available [facility] [address] [place] [address], [address], 01/14/2025 08:47:44 01/15/20 25 01/14/2025 COMPL ETE BLOOD COUNT basophil,abs olute 0.1 10*3/ uL 0.0-0. 3 normal Not Available [facility] [address] [place] [address], [address], 01/14/2025 08:47:44 03/24/20 25 01/14/2025 COMPL ETE BLOOD COUNT % neutrophils 77.3 % 42.0-7 8.0 normal Not Available [facility] [address] [place] [address], [address], 01/14/2025 08:47:44 01/15/20 25 01/14/2025 COMPL ETE BLOOD COUNT % lymphocytes 14.5 % 11.0-4 7.0 normal Not Available [facility] [address] [place] [address], [address], 01/14/2025 08:47:44 01/15/20 25 01/14/2025 COMPL ETE BLOOD COUNT % monocytes 5.6 % 0.0-11 .0 normal Not Available [facility] [address] [place] [address], [address], 01/14/2025 08:47:44 01/15/20 25 01/14/2025 COMPL ETE BLOOD COUNT % eosinophils 1.8 % 0.0-7. 0 normal Not Available [facility] [address] [place] [address], [address], 01/14/2025 08:47:44 01/15/20 25 01/14/2025 COMPL ETE BLOOD COUNT % basophils 0.8 % 0.0-3. 0 normal Not Available [facility] [address] [place] [address], [address], 01/14/2025 08:47:44 01/15/20 25 01/14/2025 COMPL ETE BLOOD COUNT nucleated red cells 0.0 % 0.0-0. 9 normal Not Available [facility] [address] [place] [address], [address], 01/14/2025 08:47:44 01/15/20 25 01/14/2025 COMPL ETE BLOOD COUNT nucleated RBCs, absolute 0.00 10*3/ uL not estab. normal Not Available [facility] [address] [place] [address], [address], 01/14/2025 08:47:44 01/15/20 25 01/14/2025 ESR, AUTOM ATED ESR, automated 13 mm 0-19 normal Not Available [facility] [address] [place] [address], [address], 01/14/2025 08:58:52 01/15/20 25 01/14/2025 RF SCREE N, QUANT . rf screen, quant. <10.0 [IU]/ mL 0.0-13 .9 normal Not Available [facility] [address] [place] [address], [address], 01/14/2025 09:10:21 01/15/20 25 01/14/2025 C REACT BETY PROTE IN C reactive protein 0.47 mg/dL 0.00-0 .49 normal Not Available [facility] [address] [place] [address], [address], 01/14/2025 09:10:24 01/15/20 25 01/15/2025 CULTU RE, ROUTI NE gram stain Gram stain indic ates sub-o ptima l speci men. Great er than 10 squam ous epith elial cells and less than 25 WBC's noted . Pleas e notif y lab withi n 24 hrs if cultu re is robinson ed. Small amoun t of mucou s prese nt. Not Available [facility] [address] [place] [address], [address], 01/15/2025 09:58:27 01/15/20 25 02/12/2025 FUNGA L CULTU RE fungal culture MICRO NUMBE R: [id number] SPECI MEN QUALI TY: Adequ ate SOURC E: SPUTU M STATU S: FINAL SMEAR : No funga l eleme nts seen. CULTU RE: No funga l growt h at 4 Weeks Not Available [facility] [address] [place] [address], [address], 02/12/2025 08:19:40 01/15/20 25 02/26/2025 AFB CULTU RE AFB culture MICRO NUMBE R: [id number] SPECI MEN QUALI TY: Adequ ate SOURC E: SPUTU M STATU S: FINAL SMEAR : No acid- fast bacil li seen using the fluor ochro me metho d. RESUL T: No Mycob acter ium speci es isola zulema after 6 weeks incub ation . COMME NT: Speci men did not meet minim um volum e requi remen t. No growt h resul ts shoul d be inter prete d with cauti on. Not Available [facility] [address] [place] [address], [address], 02/26/2025 11:37:08 01/15/20 25 01/16/2025 ANTI- CCP anti-ccp <16 units normal Refer ence Range Negat bety: <20 Weak Posit bety: 20-39 Moder ate Posit bety: 40-59 Stron g Posit bety: >59 Not Available [facility] [address] [place], [address], 01/16/2025 13:36:51 01/15/20 25 01/16/2025 MAGGIE W/ REFLE X MAGGIE screen NEGATI VE negati ve normal MAGGIE IFA is a first line scree n for detec ting the prese nce of up to appro ximat nancy 150 autoa ntibo dies in vario us autoi mmune disea ses. A negat bety MAGGIE IFA resul t sugge sts an MAGGIE-a ssoci ated autoi mmune disea se is not prese nt at this time, but is not defin itive . If there is high clini brendan suspi cion for Sjogr en's syndr ome, testi ng for anti- SS-A/ Ro antib lindsay shoul d be consi dered . Anti- Liat-1 antib lindsay shoul d be consi dered for clini madison suspe cted infla mmato ry myopa annie . AC-0: Negat bety Inter natio nal Conse nsus on MAGGIE Patte rns (http s://d oi.or g/10. 1515/ cclm- 2017- 0052) For addit ional infor margo lorenz e refer to http: //ignacio luna ics.c om/fa q/FAQ 177 (This link is being provi ded for infor vickey chapman/ educa cachorro velázquez purpo ses only. ) Not Available [facility] [address] [place] [address], [id number], 01/16/2025 20:00:53 01/15/20 25 01/18/2025 SCLER ODERM A AB (SCL7 0) scleroderma Ab <1.0 NEG ai <1.0 neg normal Not Available [facility] [address] [place] [address], [phone], 01/18/2025 15:01:18 01/15/20 25 01/18/2025 SS-A/ SS-B (SJOG JULIETTE'S ) ss-A Ab <1.0 NEG ai <1.0 neg normal Not Available [facility] [address] [place] [address], [id number], 01/18/2025 15:01:19 01/15/20 25 01/18/2025 SS-A/ SS-B (SJOG JULIETTE'S ) ss-B Ab <1.0 NEG ai <1.0 neg normal Not Available [facility] [address] [place] [address], [phone], 01/18/2025 15:01:19 01/15/20 25 01/24/2025 HYPER SENSI TIVIT Y PNEUM O EVAL aspergillus fumigatis NOT DETECT ED not detect ed normal Not Available [facility] [address] [place] [address], [phone], 01/24/2025 20:40:28 01/15/20 25 01/24/2025 HYPER SENSI TIVIT Y PNEUM O EVAL S. rectivirgula NOT DETECT ED not detect ed normal Not Available [facility] [address] [place] [address], [phone], 01/24/2025 20:40:28 01/15/20 25 01/24/2025 HYPER SENSI TIVIT Y PNEUM O EVAL S. viridis NOT DETECT ED not detect ed normal Not Available [facility] [address] [place] [address], [phone], 01/24/2025 20:40:28 01/15/20 25 01/24/2025 HYPER SENSI TIVIT Y PNEUM O EVAL T. candidus NOT DETECT ED not detect ed normal Not Available [facility] [address] [place] [address], [phone], 01/24/2025 20:40:28 01/15/20 25 01/24/2025 HYPER SENSI TIVIT Y PNEUM O EVAL T. sacchari NOT DETECT ED not detect ed normal Not Available [facility] [address] [place] [address], [phone], 01/24/2025 20:40:28 01/15/20 25 01/24/2025 HYPER SENSI TIVIT Y PNEUM O EVAL T. vulgaris NOT DETECT ED not detect ed normal Not Available [facility] [address] [place] [address], [phone], 01/24/2025 20:40:28 01/15/20 25 01/24/2025 HYPER SENSI TIVIT Y PNEUM O EVAL A. pullulans IgG <13.6 mcg/m L <13.6 normal Not Available [facility] [address] [place] [address], [phone], 01/24/2025 20:40:28 01/15/20 25 01/24/2025 HYPER SENSI TIVIT Y PNEUM O EVAL alternaria alternata IgG <13.6 mcg/m L <13.6 normal Not Available [facility] [address] [place] [address], [phone], 01/24/2025 20:40:28 01/15/20 25 01/24/2025 HYPER SENSI TIVIT Y PNEUM O EVAL cladosporium herb IgG 89.5 mcg/m L <14.7 high Not Available [facility] [address] [place], [address], 01/24/2025 20:40:28 01/15/20 25 01/24/2025 HYPER SENSI TIVIT Y PNEUM O EVAL penicillium notatum IgG 58.7 mcg/m L <17.5 high Not Available [facility] [address] [place], [address], 01/24/2025 20:40:28 01/15/20 25 01/24/2025 HYPER SENSI TIVIT Y PNEUM O EVAL phoma spp IgG 6.8 mcg/m L <6.6 high Not Available [facility] [address] [place], [address], 01/24/2025 20:40:28 01/15/20 25 01/24/2025 HYPER SENSI TIVIT Y PNEUM O EVAL trichoderma viride IgG <13.4 mcg/m L <13.4 normal This test was perfo rmed using a kit that has not been clear ed or appro jose luis by the FDA. The teressa tical perfo rmanc e diallo cteri stics of this test have been deter mined by [facility] [place] [facility] . This test shoul d not be used for diagn osis witho ut confi rmati on by other medic ally estab lishe d means . Not Available [facility] [address] [place], [address], 01/24/2025 20:40:28 12/11/19 25 12/10/2024 XR, chest , 2 view No observ ation record ed. [address] (Ccd) [address] [facility], [place], [address], 12/14/2024 09:19:18 02/21/12/14/2024 XR, cervi brendan spine , 2 or 3 view No observ ation record ed. [email or web address] [facility] ([facility]) [address] [facility], [place], [address], 12/18/2024 09:13:57 12/19/19 25 12/14/2024 XR, cervi brendan spine , 2 or 3 view No observ ation record ed. [email or web address] [facility] [address] [place] [address], [phone], 12/19/2024 11:57:52 01/02/2012/28/2024 CT, chest , w/o contr ast No observ ation record ed. [email or web address] Not Available 01/04 10:43:17 01/12/20 compl ete PFT* DOCTOR OF NAPRAPATHY/ abnorm al imagin g/ pft's/ - LSR;DOCTOR OF NAPRAPATHY / abnorm al imagin g/ pft's/ - LSR [email or web address] [facility] [address] [place] [address], [address], 01/11/2025 12:37:47 01/19/2001/18/2025 CT, abdom en + pelvi s, w/ contr ast No observ ation record ed. [email or web address] Not Available 2024 10:01:32 02/02/20 25 01/26/2025 home sleep testi ng (PROC ) No observ ation record ed. [email or web address] [facility] [address] [place] [address], [address], 02/05/2025 10:57:10 02/06/2002/05/2025 CT, chest , w/o contr ast [address] [address] [phone] Paticassandra t Name: AMANDA quezada : [birth year] Paticassandra t 50 Orderi ng Provid er: AYORIN DE MEDAIY KERA EXAM DATE: 2024 EXAM: CT MED/TH OR HIGH RESOLU TION CLINIC AL INFORM ATION: Inters titial lung diseas e TECHNI QUE: Multip le axial CT images of the chest were obtain ed in supine positi on withou t inject ion of IV contra st. High resolu tion protoc ol was used. COMPAR RAJAN: None. FINDIN GS: AIRWAY S AND LUNGS: Trache a, princi pal bronch i and major bronch ial branch es are patent and normal . No eviden ce of bronch iectas is is noted. There is no eviden ce of airspa ce diseas e or nodule . No signif icant inters titial diseas e MEDIAS TINUM: Limite d evalua tion due to absenc e of IV contra st. No medias tinal lympha denopa thy. SVC, pulmon robert arteri es, pulmon robert veins and their major branch es and tribut claudine are normal in calibe r. Cardia c size is normal . Mild dilata tion of the ascend ing thorac ic aorta measur ing 4.4 cm. PLEURA AND CHEST WALL: No pleura l effusi on or mass. No chest wall abnorm ality UPPER ABDOMI NAL ORGANS : Liver, gallbl adder, spleen , pancre as, adrena ls and upper visual ized portio ns of both kidney s are normal within the limits on interp retati on impose d by the absenc e of IV contra st. IMPRES STACEY: No signif icant alveol ar or inters titial lung diseas e is seen Interp reted By: Mckinley Waters MD Electr onical ly Signed By: Mckinley Waters MD on 025 8:39 AM [email or web address] [facility] [address] [place] [address], [phone], 02/05/2025 09:07:58 Result Notes None recorded. Problems Name Problem SNOMED Code Status Onset Date Resolution Date Notes Provider Name and Address Organization Details Recorded Time Prostate nodule 4102207332267 09 Active 2017 GINA CROUCH JR, MD [address] [place] [address], [phone], [facility] [place] [facility] 8 07:53:30 Type 2 diabetes mellitus without complicatio n 568256607 Active 2024 RICHARD JIANG, DO [address] [place], [address], [facility] 5 10:32:10 Aneurysm of thoracic aorta 887420745 Active 2024 RICHARD JIANG, DO [address] [place] [address], [address], [facility] 5 10:32:12 Steatotic liver disease 705475709 [place] 20[place] [address] [place] [address], [address], [facility] 10:32:16 Obstructive sleep apnea of adult 6902817330472 [place] 20[place] [address] [place] [address], [address], [facility] [place] [facility] 13:59:22 Interstitia l lung disease 721909879 Active 2024 VALERIE KING MD [address] [place] [address], [address], [facility] 09:01:49 Obstructive sleep apnea syndrome 07725580 Active 2024 VALERIE KING MD [address] [place] [address], [address], [facility] [place] [facility] 09:01:53 Chronic cough 63359486 Active 2024 VALERIE KING MD [address] [place] [address], [phone], [facility] 14:31:33 Problem Notes None recorded. Procedures Surgical History Date Name Laterality Status Provider Name and Address Organization Details Recorded Time 01/12/20 25 Pulmonary Function Testing completed VALERIE KING MD [address] [place] [address], [phone], [facility] [place] [facility] 01/11/2025 10:44:49 01/12/20 25 Airway Resistance completed [facility] Iqra gton [facility] 01/11/2025 08:51:37 01/12/20 25 Diffusion Capacity completed [facility] Yulisa ngton [facility] 01/11/2025 08:51:28 01/12/20 25 Lung Volumes, Plethysmography completed [facility] 01/11/2025 08:51:35 01/12/20 25 Demonstration Aerosol/Generator/N ebulizer/Optichambe r completed [facility] 01/11/2025 08:51:26 01/12/20 25 Pulmonary Lab Procedure completed [facility] 01/11/2025 08:51:20 01/12/20 25 Spirometry with Bronchodilator completed [facility] 01/11/2025 08:51:33 Imaging Results None recorded. Procedure Notes None recorded. Medical Equipment None Reported. Allergies Allergen ID Allergen Name Allergen Category Reaction Reaction Severity Criticality Documentation Date Start Date Code Code System Note Provider Name and Address Organization Details Recorded Time 729295 Product containin g penicilli n (product) medicatio n Not available Not available Not available 09/19/2017 96739 8001 SNOMED Deseriee [place] [facility] 7 13:06:34 Medications Name Sig Start Date Stop Date Status Note LastModified by Organization Details LastModified Time furosemide 40 mg tablet Take 1 tablet every day by oral route. 12/09 completed Not Available Not Available Not Available prednisone 10 mg tablet 12/09 completed Not Available Not Available Not Available doxycycline hyclate 100 mg capsule Take 1 capsule twice a day by oral route for 10 days. active Not Available Not Available No t Available azithromyci n 250 mg tablet TAKE 2 TABLETS (500 MG) BY ORAL ROUTE ONCE DAILY FOR 1 DAY THEN 1 TABLET (250 MG) BY ORAL ROUTE ONCE DAILY FOR 4 DAYS 02/01 completed Not Available Not Available Not Available pravastatin 40 mg tablet Take 1 tablet every day by oral route. 12/09 completed Not Available Not Available Not Available valacyclovi r 1 gram tablet Take 1 tablet every 12 hours by oral route for 7 days. 03/09 completed Not Available Not Available Not Available hydrocodone 5 mg-acetamin ophen 325 mg tablet 12/09 completed Not Available Not Available Not Available Klor-Con 20 mEq oral packet Take 1 packet 4 times a day by oral route. 12/09 completed Not Available Not Available Not Available sulfamethox azole 800 mg-trimetho prim 160 mg tablet 12/09 completed Not Available Not Available Not Available prednisone 10 mg tablets in a dose pack Take 1 dose pk by oral route. 03/14 completed Not Available Not Available Not Available cephalexin 500 mg capsule 12/10 completed Not Available Not Available Not Available metformin 1,000 mg tablet Take 1 tablet twice a day by oral route. active Not Available Not Available No t Available glimepiride 4 mg tablet active Not Available Not Available Not Available ceftriaxone 500 mg solution for injection Take 500 mg by injection route. 12/10 completed Not Available Not Available Not Available lisinopril 5 mg tablet take 1 tablet once daily 2024 active Not Available Not Available Not Avai lable epinephrine 0.3 mg/0.3 mL injection, auto-inject or active Not Available Not Available Not Available lisinopril 10 mg-hydrochl orothiazide 12.5 mg tablet TAKE 1/2 TABLET BY MOUTH DAILY active Not Available Not Available No t Available moxifloxaci n 0.5 % eye drops INSTILL 1 DROP INTO AFFECTED EYE(S) BY OPHTHALMI C ROUTE 3 TIMES PER DAY 12/10 completed Not Available Not Available Not Available rosuvastati n 10 mg tablet Take 1 tablet every day by oral route for 30 days. 01/05 completed Not Available Not Available Not Available rosuvastati n 20 mg tablet Take 1 tablet every day by oral route. active Not Available Not Available No t Available Lactobacill us acidophilus 500 million cell tablet Take 1 tablet every day by oral route for 30 days. 01/05 completed Not Available Not Available Not Available Celina Aspirin active Not Available Not Available Not Available Lantus Solostar U-100 Insulin 100 unit/mL (3 mL) subcutaneou s pen Inject 3 mL every day by subcutane ous route. active Not Available Not Available No t Available Farxiga 10 mg tablet active Not Available Not Available No t Available Jardiance 25 mg tablet Take 1 tablet every day by oral route. 12/09 completed Not Available Not Available Not Available Trulicity 1.5 mg/0.5 mL subcutaneou s pen injector Inject 0.5 mL every week by subcutane ous route. 12/09 completed Not Available Not Available Not Available BD Ronna 2nd Gen Pen Needle 32 gauge x 32 active Not Available Not Available Not Available Trulicity 3 mg/0.5 mL subcutaneou s pen injector Inject 0.5 mL every day by subcutane ous route for 84 days. active Not Available Not Available No t Available Flowflex COVID-19 Antigen Home Test kit 12/09 completed Not Available Not Available Not Available Paxlovid 300 mg (150 mg x 2)-100 mg tablets in a dose pack TAKE BY MOUTH INSTRUCTE D - PER PACKAGE INSTRUCTI ONS 12/10 completed Not Available Not Available Not Available Xdemvy 0.25 % eye drops INSTILL 1 DROP INTO BOTH EYES EVERY 12 HOURS FOR 6 WEEKS 12/10 completed Not Available Not Available Not Available Vitals Date Recorded Body height Body mass index (BMI) Body weight Body temperature Heart rate Oxygen saturation Oxygen saturation in Arterial blood by Pulse oximetry Systolic blood pressure Diastolic blood pressure Provider Name and Address Organization Details Last Updated DateTime 5 185.42 cm 30.9 kg/m2 692867. 61 g 97.8 [degF] 83 /min 95 % 95 % 117 mm[Hg] 80 mm[Hg] [facility] 5 10:11:31 Date Recorded Body height Body mass index (BMI) Body weight Heart rate Oxygen saturation Oxygen saturation in Arterial blood by Pulse oximetry Systolic blood pressure Diastolic blood pressure Provider Name and Address Organization Details Last Updated DateTime 5 185.42 cm 31.1 kg/m2 106645. 8 g 88 /min 96 % 96 % 126 mm[Hg] 82 mm[Hg] [facility] 5 09:48:31 Date Recorded Body height Oxygen saturation Oxygen saturation in Arterial blood by Pulse oximetry Heart rate Body mass index (BMI) Body weight Systolic blood pressure Diastolic blood pressure Provider Name and Address Organization Details Last Updated DateTime 5 182.88 cm 95 % 95 % 79 /min 32.3 kg/m2 065969. 98 g 130 mm[Hg] 80 mm[Hg] Mabel Arguello [facility] 5 08:17:07 Date Recorded Body height Body mass index (BMI) Body weight Heart rate Oxygen saturation Oxygen saturation in Arterial blood by Pulse oximetry Systolic blood pressure Diastolic blood pressure Provider Name and Address Organization Details Last Updated DateTime 5 182.88 cm 29.6 kg/m2 68723.1 4 g 82 /min 96 % 96 % 125 mm[Hg] 78 mm[Hg] Akila Mcgarry [facility] 5 08:58:35 Social History Question Answer Notes LastModified by Organizat ion Details LastModified Time Tobacco Smoking Status Never [facility]oker [facility] 12/09/2023 10:58:59 What Is Your Level Of Caffeine Consumption? Occasional [email or web address] Information not available 01/04/2025 Marital Status [email or web address] Informatio n not available 09/19/2017 What Was The Date Of Your Most Recent Tobacco Screening? 02/05/2025 [email or web address] Information not available 02/05/2025 What Is Your Relationship Status? [email or web address] Information not available 01/04/2025 Sex: Male Functional Status Question Answer Note LastModified by Organizat ion Details LastModified Time What is your level of alcohol consumption? None [email or web address] Information not available 09/19/2017 Are you currently employed? 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 Family History Relationship Description Onset Age of this Age Resolved Age Notes LastModified by Organization Details LastModified Time Unspecified Relation Diabetes mellitus [email or web address] Not available 2016 13:08:50 Unspecified Relation Family history of malignant neoplasm [email or web address] Not available 2024 09:28:08 Medical History Condition Response Allergies/Hayfever Y Atrial Fibrillation N Chronic Obstructive Pulmonary Disease N Blood Transfusion N Emphysema N Hospitalizations N Black Lung N Alzheimer's N Sarcoidosis N Pneumonia Y Pulmonary Hypertension N Anemia N Ulcers N Heart Attack (SD) N Deep Vein Thrombosis N Sinusitis N Pulmonary Fibrosis N Diabetes Y Bleeding Disorder N Arthritis N Seizures/Epilepsy N Tuberculosis N AIDS/HIV N Alpha 1 Antitrypsin Deficiency N Congestive Heart Failure (CHF) N Cancer N Stroke N Asthma N Sleep Apnea Y Thyroid Disorder N GERD/Reflux N High Cholesterol Y Aneurysm Y Hepatitis N Cirrhosis N Neuropathy N Pulmonary Embolism N Hypertension Y Osteoporosis N Immunizations Vaccine Type Date Status Note Provider Nam e and Address Organization Details Recorded Time COVID-19, mRNA, LNP-S, PF, 30 mcg/0.3 mL dose 2 completed Monica Jaylen null, [facility] 02/02/2024 14:35:29 COVID-19, mRNA, LNP-S, PF, 30 mcg/0.3 mL dose 1 completed [facility] 02/02/2024 14:35:29 COVID-19, mRNA, LNP-S, PF, 30 mcg/0.3 mL dose 1 completed Monica Jaylen [facility] 02/02/2024 14:35:29 Influenza, split virus, quadrivalent, PF 4 completed [facility] 02/02/2024 14:35:29 Influenza, split virus, quadrivalent, PF 2 completed [facility] 02/02/2024 14:35:29 Influenza, split virus, trivalent, PF 5 completed Akila cMgarry [facility] 01/11/2025 14:01:53 Pneumococcal conjugate PCV20, polysaccharide NGU361 conjugate, adjuvant, PF 5 completed VALERIE KING MD [facility] [place], [address], [facility] [place] [facility] 01/11/2025 10:39:44 Past Encounters Encounter ID Performer Location Encounter Start Date Encounter Closed Date Diagnosis/Indication Diagnosis SNOMED-CT Code Diagnosis ICD10 Code Diagnosis Note [id number] MD RYAN LLANES JR [facility] CLOS[facility] [address] [facility] [address] 09/19/2017 12:27:16 09/21/2017 10:24:57 Prostate nodule 1198691150 23040 N40.2 [id number] GINA CROUCH JR, MD [facility] OUT[facility]ACH CLOSED [address] [address] 05/15/2018 16:00:06 05/17/2018 08:06:59 Prostate nodule 4211872543 63601 N40.2 [id number] RICHARD FRASER LL, DO [facility]IMARY [facility] [address] [facility] [place] [address] 11/07/2023 15:51:24 11/07/2023 16:40:05 Acute frontal sinusitis 64954031 J01.10 recurrent- better Type 2 dany betes mellitus 77860050 E11.9 seeing priya Essential hypertension 16007142 I10 on meds. Blood pressure very good Paronychia of finger 444 688862 L03.019 R finger- not sure- rec rheum eval? -I am not sure if this is a joint issue or nailbed issue, either way it has been there for a little while does not seem to be getting any worse, but does not seem to be going away. Recommend to see what endocrinol ogist says could be inflammato ry component of diabetes, might need rheumatolo gy evaluation also Left upper quadrant pain 288480315 R10.12 colon ok - see riki. no bowel issues. Does not sound upper GI related no reflux symptoms, does not sound: Or kidney related, sounds like it could be his spleen, recommend ultrasound evaluation check routine labs today [id number] CEASAR TURK PA-C [facility] [address] [facility] [place] [address] 12/09/2023 10:50:10 12/09/2023 11:26:50 Diarrhea 22183917 R19.7 Begin taking Prebiotic as prescribed will have labs and order stool culture to r/o infx cause of diarrhea Recent imaging of abd reviewed in office todayCanno t rule out gastrointe stinal virus given symptoms. will await labs and stool for further steps.Cont BRAT diet, and increased hydration to avoid dehydratio n symptoms. ER precaution s given to pt at the time of apt.Pt verbalizes understand ing and in agreement with plan Left upper quadrant pain 787562537 R10.12 Essential hypertension 54935412 I10 Having difficulty with splitting pill.Ok to switch to Lisinopril 5mg- will send to pharmacy.c ont to closely monitor BP at home.Call office with any further questions/ concerns [id number] RICHARD MOYER, DO [facility] [place] [address] [facility] [place] [address] 01/06/2024 14:17:28 01/06/2024 15:04:08 Sore throat 613021424 J02.9 - Started 48 hours ago. Mainly a sore throat and ribs, possible fever this morning as he felt chilly.- Denies cough, headache. Family has been sick with viral infections .-Suspect more viral pharyngiti s, he is diabetic, high risk for progressio n to worsening infection. Does not do well with steroids. We will give Z-Cristobal see how he responds [id number] CEASAR TURK PA-C PRIMARY [facility] [address] [place] [address] 02/02/2024 14:27:28 02/02/2024 14:59:20 Herpes zoster 6422414 B02.9 Discussed contagion nature of shingles in depth with pt. Begin using medication as prescribed will treat pain with ibuprofen/ tylenol given pt's T2DM- avoid steroid use if possible Call office if symptoms persist/wo rsen [id number] RICHARD MOYER, DO [facility] [place] [address] [place] [address] 03/09/2024 09:01:59 03/09/2024 09:28:53 Pain in throat 460082262 R07.0 been on keflex. q 6 hr- on several days left.-Stro ngly suspect viral infection, we will send for viral respirator y panel to see if we can determine the etiology. He is already on a good course of antibiotic s. We will give prednisone , discussed this is a viral infection and may continue his course [id number] RICHARD MOYER, DO [facility] [place] [address] [place] [address] 03/14/2024 08:59:38 03/14/2024 09:50:36 Productive cough 17187961 R05.9 Acute conjunctivitis 537 10006 H10.32 Vigamox 3 times daily x 10 days Acute fron annita sinusitis 70477723 J01.10 Significan t respirator y infection, start doxycyclin e 100 mg twice daily x 10 days, Rocephin 500 mg IM x 1 [id number] RICHARD FRASER , DO PRIMARY [facility]ARE [address] [place] [address] 05/16/2024 11:55:44 05/19/2024 04:22:23 Cough 08382744 R05.9 [id number] RICHARD FRASER , DO PRIMARY CARE [address] [place] [address] 12/10/2024 09:53:31 12/10/2024 10:48:10 Paresthesia of upper limb 33272377 R20.2 Paresthesi as in the right hand, could very well be carpal tunnel, could also be cervical radiculopa thy, we will send for nerve conduction test, sent for C-spine x-ray, we will hold off on medication or therapies for now. Productive cough 8027787 5 R05.9 dark productive intermitte nt no sickness-S ent for CT evaluation Type 2 dany betes mellitus without complication 743662642 E11.9 mgt per endo Renewal of prescription 795347561 Z76.0 [id number] RICHARD FRASER , DO PRIMARY CARE [address] [place] [address] 01/04/2025 09:28:08 01/04/2025 10:39:23 Steatotic liver disease 593265000 K76.0 Fatty liver, potentiall y worsening, now with CT findings of hepatomega ly, suggest his condition is worsening instead of improving, recommend to follow back up with endocrinol ogist Aneurysm o f thoracic aorta 457132153 I71.[address] 3[address]25-He has seen Dr. Ruiz in the past, recommend follow-up with Dr. Ruiz regarding surveillan ce of his aneurysm, his blood pressure is okay currently, may need to reevaluate blood pressure regimen might benefit from a beta-block er. Also probably needs to reevaluate sleep apnea Radiology result abnormal 669976268 R93.89 Abnormal radiograph ic exam, he is basically asymptomat ic, but when he does get a respirator y infection that lingers for a considerab le amount of time.I do think given his abnormal imaging would be reasonable to get a opinion from a pulmonolog ist on if he could be developing pulmonary fibrosis or not. Type 2 dany betes mellitus without complication 747343790 E11.9 mgt per endo Obstructiv e sleep apnea of adult 2678508972 103 G47.33 Diagnosed with severe sleep apnea years ago, has been intolerant of CPAP, might need to reevaluate this given his other conditions [id number] VALERIE KING MD PULMONARY [address] [facility], [address] [place] [id number] 01/11/2025 07:56:47 01/14/2025 06:41:59 [id number] VALERIE KING MD PULMONARY [address] [facility] [address], [address] [place] [address] 01/11/2025 07:57:01 01/11/2025 11:10:32 Interstitial lung disease [id number] J84.9 He has evidence of bilateral interstiti al infiltrate s on a recent CT scan. The CT scan was performed on December 28, 2024 due to complaints about occasional cough with thick brown sputum he otherwise has no other respirator y symptoms.1 . I have reviewed the CT scan images with evidence of bilateral interstiti al infiltrate s in the upper lobes.2. This appears to be a nonspecifi c interstiti al pneumoniti s3. He has very mild restrictiv e lung disease on pulmonary function testing with reduced TLC of 73% and FVC of 79%. FEV1 FVC ratio was 92 FEV1 of 92% no significan t post BDT TLC was 73% of predicted DLCO was normal at 86% this corrected 121%3. He is a lifelong non-smoker .4. He reports daily cough productive of thick sputum occasional ly brownish. Question of blood-ting ed he was able to show me pictures of this sputum over the years5. I would proceed with an HRCT of the chest for a closer evaluation of his lung parenchyma .6. I will also obtain an autoimmune workup.7. I have requested for sputum culture he may have chronic bronchiect asis, he does not have any classic B symptoms8. We will evaluate for hypersensi tivity pneumoniti s panel9. I have advised him on age-approp riate and recommende d vaccine he will receive the Prevnar 20 today10. He had a 6-minute walk in the office with no evidence of desaturati on. Heart rate was also satisfacto ry. Obstructiv e sleep apnea syndrome [id number] G47.33 He previously had a diagnoses of NABIL but was noncomplia nt with the CPAPAnd this was years ago he lost quite a bit of weight over 60 pounds that helped some however he continues to give a history of excessive daytime drowsiness and also witnessed apneas and snoring at nightI continue to maintain strong suspicion for obstructiv e sleep apnea probably still present.We will proceed with a home sleep study. Body mass index 30+ - obesity [id number] Z68.32 He has a BMI of 32. We discussed dietary restrictio ns and lifestyle modificati on to improve weight lossAlso encouraged him to start a physical activity. Active or passive immunization [id number] Z23 I have strongly advised him on age-approp riate and recommende d vaccine he will receive the Prevnar 20 and the flu vaccine today advised him to also obtain the RSV vaccine given his abnormal lung pathology [id number] VALERIE KING MD PULMONARY [address] [facility] [address], [address] [place] [address] 02/05/2025 08:40:16 02/06/2025 04:23:40 Obstructive sleep apnea syndrome [id number] G47.33 He previously had a diagnoses of NABIL but was noncomplia nt with the CPAPAt home sleep study was performed December 2024 :AHI was 701. I will reinitiate him on CPAP therapy.2. We extensivel y discussed the possibilit y of Inspire device, I advised him that he will need some degree of compliance to the CPAP machine3. He has noticed quite a bit of weight positive reinforcem ent regarding continued weight loss was discussed Chronic cough [id number] R 05.3 He reported daily cough productive of thick sputum occasional ly brownish. Question of blood-ting ed he was able to show me pictures of this sputum over the yearsSputu m culture was inadequate . No indication for antibiotic therapy at this timeHe reports that the cough is essentiall y resolved no significan t sputum production we discussed the possibilit y of bronchosco py in the future if his cough returns. Interstiti al lung disease [id number] J84.9 He has evidence of bilateral interstiti al infiltrate s on a recent CT scan. The CT scan was performed on December 28, 2024 due to complaints about occasional cough with thick brown sputum he otherwise has no other respirator y symptoms.H RCT performed 02/05/2025 : No evidence of interstiti al lung disease or consolidat ion. Essentiall y normal lung parenchyma 1. He may have had an acute infectious process at the time or potentiall y hypersensi tivity pneumoniti s2. Hypersensi tivity pneumoniti s evaluation is positive for mold including Cladospori um and penicilliu m3. I have advised him on mold remediatio n.4. He has very mild restrictiv e lung disease on pulmonary function testing with reduced TLC of 73% and FVC of 79%. FEV1 FVC ratio was 92 FEV1 of 92% no significan t post BDT TLC was 73% of predicted DLCO was normal at 86% this corrected 121%, we will perform a repeat spirometry on his next visit5. He is up-to-date with age-approp riate and recommende d vaccine he will require the RSV vaccine6. He had a 6-minute walk in the office with no evidence of desaturati on. Heart rate was also satisfacto ry. This was during his last visit. Health Concerns Section Related Observation LastModified by Organization Detai ls LastModified Time None Recorded Concern Status LastModified by Organization Details LastModified Time None Recorded Advance Directives Directive None Recorded Payers Insurance Date Sequence Insurance Name Policy Number Policy Escalera Covered Member ID Escalera Member ID Guarantor Name 09/20/2017 1 *SELF PAY* Tez Tolentino 03/24/2025 1 [employer] [id number] Katharine Tolentino [id number] Amanda Tolentino Notes Date Note Type Note Provider Name and Address Organization Details Recorded Time 12/10/2024 text/html Patient is 54-year-old male here for acute visit.He has type 2 diabetes, felt to be relatively well-controlled, follows with endocrinology.. He is here today to discuss 2 major concerns. First concern is numbness and tingling in his right hand, mostly his first finger and his thumb, he woke up that way yesterday morning, and it has not gone away, he has had this at different times throughout the last little bit, but nothing it has been this persistent.There is no injury that he reports. He does note he has been to the chiropractor for back pain and neck pain a couple times over the last month or so, last adjustment was almost 2 weeks ago, when he did that he did feel some numbness and tingling, but mostly in his left hand and that did not last for very long. He also is reporting cough, mostly in the morning, occasionally productive of very dark brown-colored foul tasting sputum, he does not think it is coming from his head or sinuses he has not been sick, he does not feel bad. This has been going on for a few months but may be getting a little bit more often RICHARD AGUSTIN, DO [address] [place], [phone], [facility] 12/10/2024 12:46:04 01/04/2025 text/html Patient is 54-year-old male here for follow-up visit. He has diabetes, historically suboptimally controlled, last A1c was 7.9 last year, he is on Trulicity, Farxiga, glimepiride, metformin, and Lantus.Overall he feels okay does not have any difficulty with his blood glucose. He is also on CHAU inhibitor, and statin. He typically gets 1 bad lung infection each year plus or minus, however it takes a long time to respond, earlier this year he developed a respiratory infection, lingered a little longer with a productive cough which led to an x-ray which showed some basilar atelectasis versus scarring, recommended a CT for further evaluation even though his symptoms improved completely. CT shows coronary artery calcifications, also shows a 4.6 cm thoracic aortic aneurysm, she has fatty liver with borderline hepatomegaly, as well as scattered airspace disease and possible pulmonary fibrosis.. CT was performed when patient was asymptomatic Currently he feels well no cough no chest congestion, no issues or concerns, no dyspnea RICHARD AGUSTIN DO [address] [place] [address], [phone], [facility] 01/04/2025 13:59:45 01/11/2025 text/html This is a 54-yea r-old male referred to the pulmonary clinic for evaluation of abnormal chest imaging. He was seeing his primary care physician for some wellness care and some other complaint when he mention cough productive of very thick brownish and greenish sputum. This happens most mornings of the weekHe denies any respiratory complaint no cough of significance , no shortness of breath. No wheezing or rhonchiHe has no history of COPD or asthma no hemoptysis no weight loss.He reports recurrent bronchitic symptoms over the past 10 years. Almost always seasonal occurring from September to January of every year he also has some voice loss. He had a major pneumonia back in he was found to have human metapneumovirus infection with probable bacterial superinfection.No previous significant hospitalization especially as a child.He is a lifelong non-smoker he has some dogs at home but no birds. 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 No significant exposure to toxic fumes or chemicals VALERIE KING MD [address] [place] [address], [phone], [facility] 01/11/2025 11:01:35 02/05/2025 text/html He is feeling be tter. He has no cough although still feels feel some drainage. He had a sleep study with evidence for severe sleep apnea. He has an AHI of 70.He had a follow-up HRCT today to evaluate for ILD. VALERIE KING MD [address] [place] [address], [phone], [facility] 02/05/2025 16:54:02
--- OUTSIDE RECORDS SUMMARY | 2025-03-29 11:28 | XMS_ITS | Encounter Summary ---
Author Organization [facility] Address [address] [place] [address] Care Team Providers Care Laboratory Equipment Installer Name Role Phone NikoleSaud Soraida JIANG Primary Care Provider Encounter Details Date Type Department Care Team (Late st Contact Info) Description 02/05/2025 Orders Only External Location [address] [place] [id number] Provider, External Social History Tobacco Use Types [...] EST Appointment [facility] [address] [place] [address] 09/12/2025 1:40 PM EST Office Visit [facility] [address], [address] [place] [address] Adi Barrientos MD [address] [place] [phone] documented as of this encounter Procedures Procedure [...] on filedocumented in this encounter Care Teams Laboratory Equipment Installer Relationship Specialty Start Date End Date Saud Agustin DO [facility] [address] [place] [address] PCP - General 02/04/25 documented as of this encounter
[2025-03-29 12:03] LABS: Alanine Aminotransferase 21 U/L (12-78); Albumin Level 4.6 g/dl (3.5-5.0); Albumin/Globulin Ratio 1.8 (1.1-1.8); Alkaline Phosphatase 59 U/L (38-126); Anion Gap 7.2 mEq/L (5-15); Aspartate Amino Transferase 25 U/L (17-59); Bilirubin,Total 0.7 mg/dl (0.2-1.3); Blood Urea Nitrogen 9 mg/dl (9-20); Calcium 9.2 mg/dl (8.4-10.2); Carbon Dioxide 30 mmol/L (22.0-30.0); Chloride 105 mmol/L (98-107); Estimated Glomerular Filt Rate 140 ml/min (>60); GFR (African American) 170 ML/MIN (>60); Globulin 2.5 g/dL (1.3-3.2); Glucose 73 mg/dl (74-100); Potassium 4.2 mmoL/L (3.5-5.1); Sodium 138 mmol/L (136-145); Total Protein,Serum 7.1 g/dl (6.3-8.2)
[2025-04-02 13:11] LABS: ALT (SGPT) P5P 21 IU/L (0-55); AST (SGOT) P5P 26 IU/L (0-40); Alpha 2-Macroglobulins, Qn 237 mg/dL (110-276); Apolipoprotein A-1 113 mg/dL (101-178); Bilirubin, Total 0.3 mg/dL (0.0-1.2); Cholesterol, Total 96 mg/dL (100-199); Fibrosis Score 0.21 (0.00-0.21); Fibrosis Stage F0-F1 (.); GGT 9 IU/L (0-65); Glucose 76 mg/dL (70-99); Haptoglobin 124 mg/dL (29-370); Steatosis Score 0.14 (0.00-0.40); Triglycerides 103 mg/dL (0-149)
== END 2025-03-29 23:59 | disposition home or self-care (01) ==
LOC: LAB 11:24
PROVIDERS: PCP Internal Medicine; Visit Provider Internal Medicine Gastroenterology
DX: K76.0 Fatty (change of) liver, not elsewhere classified (principal)
CPT/HCPCS: 36415; 80053; 82172; 82247; 82465; 82947; 82977; 83010; 83883; 84450; 84460; 84478